=== PATIENT | female | born 1955 | race Caucasian/White ===

== ENCOUNTER → 2017-11-23 06:52 | Outpatient (CLI) | payer OTHER, SELFPAY ==
[2017-11-23 07:31] LABS: Hemoglobin A1C 8.9 % (0.0-7.0)
[2017-11-23 08:02] LABS: Creatinine,Urine Random 342 mg/dL (20-320)
[2017-11-23 08:19] LABS: Alanine Aminotransferase 39 U/L (12-78); Albumin Level 3.7 gm/dL (3.4-5.0); Albumin/Globulin Ratio 1.2 (1.1-1.8); Alkaline Phosphatase 79 U/L (46-116); Anion Gap 11.6 mEq/L (5-15); Aspartate Amino Transferase 26 U/L (15-37); Bilirubin,Total 0.5 mg/dL (0.2-1.0); Blood Urea Nitrogen 13 mg/dL (7-18); Calcium 8.8 mg/dL (8.5-10.1); Carbon Dioxide 30 mmol/L (21.0-32.0); Chloride 106 mmol/L (98-107); Chol/HDL Ratio 2.9 (1-3.5); Cholesterol 178 mg/dL (140-200); Creatinine,Serum 0.92 mg/dL (0.55-1.02); Estimated Glomerular Filt Rate 62 ml/min (>60); GFR (African American) 75 ML/MIN (>60); Globulin 3.2 gm/dl (1.3-3.2); Glucose 72 mg/dL (74-106); HDL Cholesterol 61 mg/dL (29-89); LDL Cholesterol 88 mg/dL (0-130); Potassium 4.6 mmoL/L (3.5-5.1); Sodium 143 mmol/L (136-145); Total Protein,Serum 6.9 gm/dL (6.4-8.2); Triglycerides 147 mg/dL (30-200); VLDL Cholesterol 29 mg/dL (0-40)
[2017-11-23 11:01] LABS: Microscopic, Urine URINE MICROSCOPIC (MICROSCOPIC)
[2017-11-23 11:03] LABS: Appearance,Urine SL CLOUDY (Clear); Bilirubin,Urine Negative (Negative); Blood, Urine Negative (Negative); Color,Urine YELLOW (Yellow); Glucose,Urine (UA) Negative (Negative); Ketones,Urine Negative (Negative); Leukocyte Esterase,Urine 1+ (Negative); Nitrate,Urine Negative (Negative); Protein,Urine Negative (Negative); Specific Gravity, Urine >= 1.030 (1.005-1.030); Urobilinogen,Urine 0.2 EU/dl (0.2)
[2017-11-23 11:14] LABS: Bacteria,Urine 4+ /lpf; Squamous Epithelial Cell,Urine 20-50 #/hpf (0-5)
== END ==
PROVIDERS: PCP Internal Medicine Adolescent Medicine; Visit Provider Nurse Practitioner Family
DX: E10.29 Type 1 diabetes mellitus with other diabetic kidney complication (principal); E78.2 Mixed hyperlipidemia; R39.15 Urgency of urination
CPT/HCPCS: 36415; 80053; 80061; 81001; 82043; 82570; 83036; 87086

== ENCOUNTER → 2018-05-26 07:07 | Outpatient (CLI) | payer OTHER, SELFPAY ==
[2018-05-26 09:06] LABS: Alanine Aminotransferase 34 U/L (12-78); Albumin Level 3.8 gm/dL (3.4-5.0); Albumin/Globulin Ratio 1.1 (1.1-1.8); Alkaline Phosphatase 88 U/L (46-116); Anion Gap 12.7 mEq/L (5-15); Aspartate Amino Transferase 22 U/L (15-37); Bilirubin,Total 0.5 mg/dL (0.2-1.0); Blood Urea Nitrogen 15 mg/dL (7-18); Carbon Dioxide 29 mmol/L (21.0-32.0); Chloride 102 mmol/L (98-107); Chol/HDL Ratio 3.3 (1-3.5); Cholesterol 216 mg/dL (140-200); Estimated Glomerular Filt Rate 63 ml/min (>60); GFR (African American) 77 ML/MIN (>60); Globulin 3.6 gm/dl (1.3-3.2); Glucose 150 mg/dL (74-106); HDL Cholesterol 66 mg/dL (29-89); LDL Cholesterol 120 mg/dL (0-130); Potassium 4.7 mmoL/L (3.5-5.1); Sodium 139 mmol/L (136-145); Thyroid Stimulating Hormone 2.21 uIU/ml (0.358-3.740); Total Protein,Serum 7.4 gm/dL (6.4-8.2); Triglycerides 152 mg/dL (30-200); VLDL Cholesterol 30 mg/dL (0-40)
[2018-05-26 09:25] LABS: Basophils # 0.1 K/mm3 (0-0.2); Basophils % 0.7 % (0.1-2.0); Eosinophils # 0.2 K/mm3 (0.0-0.4); Hematocrit 42.4 % (37.0-47.0); Lymphocytes % 29.2 % (10-50); Mean Corpuscular HGB Conc 33.1 g/dL (31.8-35.4); Mean Corpuscular Hemoglobin 29.2 pg (27.0-31.2); Mean Corpuscular Volume 88.3 fl (81-99); Mean Platelet Volume 8.1 fl (7.4-10.4); Monocytes # 0.7 K/mm3 (0.1-1.0); Monocytes % 6.8 % (1.7-9.3); Neutrophils # 6.4 K/mm3 (1.8-7.8); Neutrophils % 61.4 % (37.0-80.0); Platelet Count 338 K/mm3 (142-424); Red Blood Count 4.81 M/mm3 (4.20-5.40); Red Cell Distribution Width 13.8 % (11.5-17.5); White Blood Count 10.4 K/mm3 (4.8-10.8)
[2018-05-27 09:20] LABS: Creatinine, Urine 138.4 mg/dL (Not Estab.); Microalbumin, Urine 13.3 ug/mL (Not Estab.)
[2018-05-27 09:26] LABS: Rapid Plasma Reagin Ab Titer Non Reactive (NonRea<1:1)
[2018-05-27 09:27] LABS: Vitamin B12 402 pg/mL (232-1245)
== END ==
PROVIDERS: Visit Provider Nurse Practitioner Family
DX: E10.29 Type 1 diabetes mellitus with other diabetic kidney complication (principal); E78.2 Mixed hyperlipidemia; R41.3 Other amnesia; E53.8 Deficiency of other specified B group vitamins; R80.9 Proteinuria, unspecified
CPT/HCPCS: 36415; 80053; 80061; 82043; 82570; 82607; 83036; 84443; 85025; 86592

== ENCOUNTER → 2018-06-15 08:20 | Outpatient (CLI) | payer OTHER, SELFPAY ==
--- NOTE | 2018-06-15 08:22 | MM_ITS ---
MM Dig screening mamm BI w/CAD CAD Screening COMPARISON: Digital mammograms with CAD 08/09/2015 and 02/03/2013 INDICATION: There is no personal or family history of breast cancer. There is been previous biopsy right breast for benign disease. TECHNIQUE: Standard CC and MLO images were obtained. R2 CAD reviewed. FINDINGS: Prominent somewhat heterogenic fibroglandular densities are seen in both breast primarily upper outer quadrants. The findings are bilateral and symmetrical. There is no suspicious lesion and no suspicious microcalcifications. IMPRESSION: Stable exam with no suspicious lesion seen BI-RADS Category: 1 Negative RECOMMENDED FOLLOW-UP: 1YR - 1 YEAR FOLLOW-UP (A letter has been sent to the patient regarding results of the study.)
== END ==
PROVIDERS: PCP Nurse Practitioner Family; Visit Provider Nurse Practitioner Family
DX: Z12.31 Encounter for screening mammogram for malignant neoplasm of breast (principal)
CPT/HCPCS: 77067

== ENCOUNTER → 2018-12-06 17:24 | Outpatient (CLI) | payer OTHER, SELFPAY | PROVIDERS: Visit Provider Podiatrist | DX: B35.1 Tinea unguium (principal) | CPT/HCPCS: 87102; 87206; 87220 ==

== ENCOUNTER → 2019-05-12 07:17 | Outpatient (CLI) | payer OTHER, SELFPAY ==
[2019-05-12 07:55] LABS: Basophils # 0.1 K/mm3 (0-0.2); Basophils % 0.6 % (0.1-2.0); Eosinophils # 0.1 K/mm3 (0.0-0.4); Eosinophils % 1.5 % (0.1-12.0); Hematocrit 43.2 % (37.0-47.0); Hemoglobin 13.8 g/dL (12.2-16.2); Lymphocytes # 2.3 K/mm3 (0.7-4.5); Lymphocytes % 24.9 % (10-50); Mean Corpuscular HGB Conc 31.9 g/dL (31.8-35.4); Mean Corpuscular Hemoglobin 28.8 pg (27.0-31.2); Mean Platelet Volume 7.9 fl (7.4-10.4); Monocytes # 0.6 K/mm3 (0.1-1.0); Monocytes % 6.4 % (1.7-9.3); Neutrophils # 6.3 K/mm3 (1.8-7.8); Neutrophils % 66.6 % (37.0-80.0); Platelet Count 291 K/mm3 (142-424); Red Cell Distribution Width 13.6 % (11.5-17.5); White Blood Count 9.4 K/mm3 (4.8-10.8)
[2019-05-12 09:29] LABS: Alanine Aminotransferase 29 U/L (9-52); Albumin Level 3.6 g/dL (3.4-5.0); Alkaline Phosphatase 87 U/L (46-116); Anion Gap 15.8 mEq/L (5-15); Aspartate Amino Transferase 19 U/L (15-37); Bilirubin,Total 0.4 mg/dL (0.2-1.0); Blood Urea Nitrogen 19 mg/dL (7-18); Calcium 8.9 mg/dL (8.5-10.1); Carbon Dioxide 27 mmol/L (21.0-32.0); Chloride 105 mmol/L (98-107); Chol/HDL Ratio 3.1 (1-3.5); Cholesterol 203 mg/dL (140-200); Creatinine,Serum 0.86 mg/dL (0.55-1.02); Estimated Glomerular Filt Rate 67 ml/min (>60); GFR (African American) 81 ML/MIN (>60); Globulin 3.7 gm/dl (1.3-3.2); Glucose 155 mg/dL (74-106); HDL Cholesterol 65 mg/dL (29-89); LDL Cholesterol 117 mg/dL (0-130); Potassium 4.8 mmoL/L (3.5-5.1); Sodium 143 mmol/L (137-145); Total Protein,Serum 7.3 g/dL (6.4-8.2); Triglycerides 106 mg/dL (30-200); VLDL Cholesterol 21 mg/dL (0-40)
[2019-05-12 10:07] LABS: Hemoglobin A1C 9.3 % (0.0-7.0)
[2019-05-13 10:48] LABS: Vitamin B12 469 pg/mL (232-1245)
[2019-05-13 11:01] LABS: Creatinine, Urine 142.9 mg/dL (Not Estab.)
== END ==
PROVIDERS: PCP Internal Medicine Adolescent Medicine; Visit Provider Nurse Practitioner Family
DX: E10.29 Type 1 diabetes mellitus with other diabetic kidney complication (principal); E78.2 Mixed hyperlipidemia; E53.8 Deficiency of other specified B group vitamins; R80.9 Proteinuria, unspecified
CPT/HCPCS: 36415; 80053; 80061; 82043; 82570; 82607; 83036; 85025

== ENCOUNTER → 2020-02-22 08:24 | Outpatient (CLI) | payer OTHER, SELFPAY ==
[2020-02-22 09:19] LABS: Basophils # 0.1 K/mm3 (0-0.2); Basophils % 0.8 % (0.1-2.0); Eosinophils # 0.2 K/mm3 (0.0-0.4); Eosinophils % 1.5 % (0.1-12.0); Hematocrit 44.7 % (37.0-47.0); Hemoglobin 14.4 g/dL (12.2-16.2); Lymphocytes # 2.9 K/mm3 (0.7-4.5); Lymphocytes % 27.2 % (10-50); Mean Corpuscular HGB Conc 32.3 g/dL (31.8-35.4); Mean Corpuscular Hemoglobin 29.3 pg (27.0-31.2); Mean Corpuscular Volume 90.8 fl (81-99); Mean Platelet Volume 9.4 fl (7.4-10.4); Monocytes # 0.7 K/mm3 (0.1-1.0); Monocytes % 6.6 % (1.7-9.3); Neutrophils # 6.7 K/mm3 (1.8-7.8); Neutrophils % 63.9 % (37.0-80.0); Platelet Count 334 K/mm3 (142-424); Red Blood Count 4.92 M/mm3 (4.20-5.40); Red Cell Distribution Width 15.4 % (11.5-17.5); White Blood Count 10.5 K/mm3 (4.8-10.8)
[2020-02-22 11:07] LABS: Chloride 101 mmol/L (98-107); Sodium 139 mmol/L (136-145)
[2020-02-22 11:09] LABS: Alanine Aminotransferase 27 U/L (12-78); Aspartate Amino Transferase 36 U/L (14-36); Blood Urea Nitrogen 20 mg/dl (7-17); Carbon Dioxide 30 mmol/L (22.0-30.0); Estimated Glomerular Filt Rate 63 ml/min (>60); GFR (African American) 77 ML/MIN (>60)
[2020-02-22 11:10] LABS: Albumin Level 4.4 g/dl (3.5-5.0); Albumin/Globulin Ratio 1.5 (1.1-1.8); Alkaline Phosphatase 78 U/L (38-126); Bilirubin,Total 0.6 mg/dl (0.2-1.3); Calcium 9.6 mg/dl (8.4-10.2); Chol/HDL Ratio 2.6 (1-3.5); Cholesterol 184 mg/dl (140-200); Glucose 176 mg/dl (74-100); HDL Cholesterol 70 mg/dl (40-60); Total Protein,Serum 7.4 g/dl (6.3-8.2); Triglycerides 135 mg/dl (30-150); VLDL Cholesterol 27 mg/dL (0-40)
[2020-02-22 11:22] LABS: Direct LDL Cholesterol 77.67 mg/dL (100-129)
[2020-02-22 11:44] LABS: Hemoglobin A1C 6.9 % (4.0-6.0)
[2020-02-22 14:55] LABS: Creatinine,Urine Random 169 mg/dL (Not Estab.)
[2020-02-22 15:00] LABS: Microalbumin/Creatinine Ratio 5.3
[2020-02-22 23:25] LABS: Vitamin B12 > 1000 pg/mL (239-931)
== END ==
PROVIDERS: Visit Provider Nurse Practitioner Family
DX: E10.29 Type 1 diabetes mellitus with other diabetic kidney complication (principal); E78.2 Mixed hyperlipidemia; E53.8 Deficiency of other specified B group vitamins
CPT/HCPCS: 36415; 80053; 80061; 82043; 82570; 82607; 83036; 85025

== ENCOUNTER → 2020-06-18 08:55 | Outpatient (CLI) | payer OTHER, SELFPAY ==
[2020-06-18 10:38] LABS: Coronavirus 19 IgG Antibody Positive (Negative); Coronavirus 19 IgM Antibody Negative (Negative)
== END ==
PROVIDERS: Visit Provider Ophthalmology
DX: Z01.818 Encounter for other preprocedural examination (principal); Z20.822 Contact with and (suspected) exposure to COVID-19; H25.11 Age-related nuclear cataract, right eye
CPT/HCPCS: 36415; 86328

== ENCOUNTER 2020-06-19 08:07 | Day surgery (SDC) | payer OTHER, SELFPAY ==
[2020-06-12 11:05] VITALS: BMI 26.0
[2020-06-19 08:37] VITALS: BP 141/77; PULSE 92; RESP 16; TEMP 36.2; O2SAT 98
[2020-06-19 10:14] LABS: POC Glucose,Bedside 112 (70-110)
[2020-06-19 10:21] VITALS: BP 171/78; PULSE 90; RESP 18; TEMP 36.4; O2SAT 98
[2020-06-19 10:26] VITALS: BP 143/69; PULSE 86; RESP 18; O2SAT 98
[2020-06-19 10:31] VITALS: BP 154/72; PULSE 86; RESP 20; O2SAT 98
[2020-06-19 10:36] VITALS: BP 147/78; PULSE 82; RESP 18; O2SAT 100
[2020-06-19 10:40] VITALS: BP 145/68; PULSE 63; RESP 16; TEMP 36.3; O2SAT 100
== END 2020-06-19 10:56 | disposition home or self-care (01) ==
LOC: OR 08:08
PROVIDERS: PCP Internal Medicine Adolescent Medicine; Visit Provider Ophthalmology
PROC: (CPT 66984; principal; 2020-06-19 10:00)
DX: H25.813 Combined forms of age-related cataract, bilateral (principal); E11.9 Type 2 diabetes mellitus without complications; Z87.19 Personal history of other diseases of the digestive system; Z79.899 Other long term (current) drug therapy; Z79.4 Long term (current) use of insulin
CPT/HCPCS: 66984; 82962; V2632

== ENCOUNTER → 2020-08-04 07:46 | Outpatient (CLI) | payer OTHER, SELFPAY | PROVIDERS: Visit Provider Ophthalmology | DX: Z01.812 Encounter for preprocedural laboratory examination (principal); Z11.52 Encounter for screening for COVID-19; H25.12 Age-related nuclear cataract, left eye | CPT/HCPCS: U0003 ==

== ENCOUNTER 2020-08-07 06:27 | Day surgery (SDC) | payer OTHER, SELFPAY ==
[2020-08-01 09:30] VITALS: BMI 26.0
[2020-08-07 06:40] VITALS: BP 145/92; PULSE 86; RESP 18; TEMP 36.2; O2SAT 98
[2020-08-07 06:48] LABS: POC Glucose,Bedside 95 (70-110)
[2020-08-07 07:43] VITALS: BP 152/72; PULSE 87; RESP 16; O2SAT 100
[2020-08-07 07:48] VITALS: BP 146/67; PULSE 78; RESP 16; O2SAT 100
[2020-08-07 07:53] VITALS: BP 136/66; PULSE 78; RESP 16; O2SAT 100
[2020-08-07 07:57] VITALS: BP 128/65; PULSE 77; RESP 16; O2SAT 100
[2020-08-07 08:00] VITALS: BP 122/70; PULSE 77; RESP 18; TEMP 36.2; O2SAT 100
== END 2020-08-07 08:10 | disposition home or self-care (01) ==
LOC: OR 06:27
PROVIDERS: PCP Internal Medicine Adolescent Medicine; Visit Provider Ophthalmology
PROC: (CPT 66984; principal; 2020-08-07 07:30)
DX: H25.813 Combined forms of age-related cataract, bilateral (principal); E11.9 Type 2 diabetes mellitus without complications; Z90.49 Acquired absence of other specified parts of digestive tract; E78.5 Hyperlipidemia, unspecified; I10 Essential (primary) hypertension; Z79.899 Other long term (current) drug therapy; Z79.4 Long term (current) use of insulin
CPT/HCPCS: 66984; 82962; V2632

== ENCOUNTER → 2020-12-18 07:21 | Outpatient (CLI) | payer OTHER, SELFPAY ==
[2020-12-18 08:27] LABS: Alanine Aminotransferase 25 U/L (12-78); Albumin Level 4.1 g/dl (3.5-5.0); Albumin/Globulin Ratio 1.3 (1.1-1.8); Alkaline Phosphatase 68 U/L (38-126); Anion Gap 12.2 mEq/L (5-15); Aspartate Amino Transferase 31 U/L (14-36); Bilirubin,Total 0.4 mg/dl (0.2-1.3); Blood Urea Nitrogen 20 mg/dl (7-17); Calcium 9.2 mg/dl (8.4-10.2); Carbon Dioxide 29 mmol/L (22.0-30.0); Chloride 103 mmol/L (98-107); Chol/HDL Ratio 2.6 (1-3.5); Cholesterol 185 mg/dl (140-200); Estimated Glomerular Filt Rate 72 ml/min (>60); GFR (African American) 87 ML/MIN (>60); Globulin 3.1 g/dL (1.3-3.2); Glucose 205 mg/dl (74-100); HDL Cholesterol 72 mg/dl (40-60); Potassium 5.2 mmoL/L (3.5-5.1); Sodium 139 mmol/L (136-145); Total Protein,Serum 7.2 g/dl (6.3-8.2); Triglycerides 145 mg/dl (30-150); VLDL Cholesterol 29 mg/dL (0-40)
[2020-12-18 08:28] LABS: Microalbumin/Creatinine Ratio 10.6
[2020-12-18 08:30] LABS: Creatinine,Urine Random 156 mg/dL (Not Estab.)
[2020-12-18 08:38] LABS: Direct LDL Cholesterol 81.94 mg/dL (100-129)
[2020-12-18 08:57] LABS: Thyroid Stimulating Hormone 0.35 uIU/mL (0.465-4.68)
== END ==
PROVIDERS: Visit Provider Nurse Practitioner
DX: E10.65 Type 1 diabetes mellitus with hyperglycemia (principal); Z79.4 Long term (current) use of insulin
CPT/HCPCS: 36415; 80053; 80061; 82043; 82570; 84443

== ENCOUNTER 2021-07-31 17:57 | Emergency (ER) | payer OTHER, SELFPAY ==
[2021-07-31 18:00] VITALS: BP 153/75; PULSE 102; RESP 18; TEMP 37.9; O2SAT 97; BMI 25.4
--- NOTE | 2021-07-31 18:53 | HMH.EDUTC ---
[facility] [place] Clinical Impression: COVID-19 Disposition: Home, Self-Care Condition on Discharge: Good Instructions: DI for Fever (Symptom) -- Adult, DI for COVID-19 (Suspected or Confirmed ), Preventing the Spread of Coronavirus Discharge Instructions Additional Instructions: *Monitor Temp, Over the counter Motrin or Tylenol as directed/as needed Tylenol every 4 hours and Motrin every 6 hours (as long as your family doctor has told you that you can take it) for fever or pain. and straight to ER if unable to lower temp less than 101.0 after medication given *Warm salt water gargles may help to soothe the throat *Throat Lozenges *Warm fluids like tea with honey may help to soothe the throat *Sleep elevated *Humidifier/Vaporizer *Make sure to wear a well fitted mask Follow up IMMEDIATELY for new or worsening symptoms or no Noticeable improvement over the next 48-72 hours. 911 for difficulty breathing or swallowing Calculating Isolation Day 0 is your first day of symptoms or a positive viral test. Day 1 is the first full day after your symptoms developed or your test specimen was collected. If you have COVID-19 or have symptoms, isolate for at least 5 days. IF YOU Tested positive for COVID-19 or have symptoms, regardless of vaccination status Stay home for at least 5 days Stay home for 5 days and isolate from others in your home. Wear a well-fitting mask if you must be around others in your home. Do not travel. Ending isolation if you had symptoms End isolation after 5 full days if you are fever-free for 24 hours (without the use of fever-reducing medication) and your symptoms are improving. Ending isolation if you did NOT have symptoms End isolation after at least 5 full days after your positive test. If you got very sick from COVID-19 or have a weakened immune system You should isolate for at least 10 days. Consult your doctor before ending isolation. Prescriptions: Nirmatrelvir/Ritonavir [Paxlovid Co-Pack (Eua)] 1 each PO DIRECTED #30 tab Transmission Status: Pending to [id number] Referrals: Gerardo Siegel MD [Primary Care Provider] - As needed Forms: Work/School Release Time of Disposition: 19:34 Medical Decision Making - Miguel Inquiry Pt receiving controlled substance: No Miguel was queried for this patient: No Vital Signs: 07/31/21 18:00 07/31/21 19:34 Temperature 100.2 F H 100.2 F H Temperature Source Oral Pulse Rate 102 H Pulse Rate [Right Brachial] 102 H Respiratory Rate 18 18 Blood Pressure 153/75 H Blood Pressure [Right Arm] 153/75 H Blood Pressure Mean [Right Arm] 101 Blood Pressure Source [Right Arm] Automatic Cuff Blood Pressure Position [Right Arm] Sitting 02 Sat by Pulse Oximetry 97 Oxygen Delivery Method Room Air - Lab Data Lab results reviewed: Yes: I reviewed the patient's lab results. Lab Results 07/31/21 18:07: SARS-CoV-2 (PCR) Detected A, Influenza A Untype (PCR) Not detected, Influenza Type B (PCR) Not detected Medical Decision Narrative: Patient requesting Paxlovid spoke with [facility] pharmacy in [place] and they advised can prescribed for + COVID and they do have it in stock, awaiting rapid COVID test Patient COVID test not back patient give her number and wanted to go home and wait on results and if positive to call in Paxlovid to [facility] in [place] Discussed with [facility] about prescribing paxlovid [facility] in [place] has medication and recommended contacting them for prescribing guidelines and directions, Contacted [facility] and spoke with Pharmacist and he advised for +COVID 19 patient with elevated risk and to write Paxlovid 30tables as directed on package and they would provide complete instructions on how to take medication Patient COVID test back + result medication sent to [facility] and patient contacted and advised that medication had been sent into [place] [facility] [place] - General Stated complaint: covid test sore throat cough raymundo Time
[2021-07-31 19:08] LABS: Influenza A, PCR Not Detected (NotDetected); Influenza B, PCR Not Detected (NotDetected)
[2021-07-31 19:34] VITALS: BP 153/75; PULSE 102; RESP 18; TEMP 37.9; O2SAT 97
[2021-07-31 20:04] LABS: Coronavirus 19, PCR Detected (NotDetected)
== END 2021-07-31 19:40 | disposition home or self-care (01) ==
PROVIDERS: Emergency Provider Nurse Practitioner; PCP Internal Medicine Adolescent Medicine
DX: U07.1 COVID-19 (principal)
CPT/HCPCS: 99212; C9803; G0463; U0003; U0005

== ENCOUNTER 2021-11-16 09:16 | Inpatient (IN) | payer OTHER, MEDICARE, SELFPAY ==
[2021-11-16] VITALS (15 sets, daily range): BP systolic 102–173; BP diastolic 48–75; PULSE 97–108; RESP 16–18; TEMP 37.1–37.3; O2SAT 93–97; BMI 25.7; BMI 26.5
--- NOTE | 2021-11-16 09:34 | PC.NURSE ---
covid test sent to the lab
--- NOTE | 2021-11-16 09:34 | PC.NURSE ---
Pt has glucose reading is 280
[2021-11-16 09:37] LABS: Coronavirus 19, PCR Not Detected (NotDetected); Influenza A, PCR Not Detected (NotDetected); Influenza B, PCR Not Detected (NotDetected)
--- NOTE | 2021-11-16 09:49 | HMH.EDGENADL ---
ED Disposition Clinical Impression: Pneumonia Qualifiers: Pneumonia type: due to unspecified organism Laterality: bilateral Lung location: unspecified part of lung Qualified Code(s): J18.9 - Pneumonia, unspecified organism Sepsis Qualifiers: Sepsis type: sepsis due to unspecified organism Sepsis acute organ dysfunction status: with acute organ dysfunction Severe sepsis acute organ dysfunction type: acute respiratory failure Acute respiratory failure type: with hypoxia Severe sepsis shock status: without septic shock Qualified Code(s): A41.9 - Sepsis, unspecified organism; R65.20 - Severe sepsis without septic shock; J96.01 - Acute respiratory failure with hypoxia Respiratory failure with hypoxia Qualifiers: Chronicity: acute Qualified Code(s): J96.01 - Acute respiratory failure with hypoxia Disposition: Admitted As Inpatient Condition on Discharge: Serious Referrals: Brittany Hensley APRN [Primary Care Provider] - - Critical Care Critical Care Time: No Attestation: On 11/16/21, the high probability of a clinically significant, sudden or life threatening deterioration of the following system(s) required my full and direct attention, intervention and personal management. The time I documented below is in addition to time spent performing reported procedures but includes the following listed in this critical care notation. Medical Decision Making - Miguel Inquiry Pt receiving controlled substance: No Vital Signs: 11/16/21 09:19 11/16/21 09:44 11/16/21 10:00 Temperature 99.1 F Temperature Source Oral Pulse Rate 104 H Pulse Rate [Left Radial] 107 H Respiratory Rate 18 Blood Pressure 160/75 H 171/70 H Blood Pressure [Right Arm] 173/74 H Blood Pressure Mean 103 Blood Pressure Mean [Right Arm] 107 Blood Pressure Source Blood Pressure Source [Right Arm] Automatic Cuff Blood Pressure Position Blood Pressure Position [Right Arm] Sitting 02 Sat by Pulse Oximetry 97 95 Oxygen Delivery Method Room Air Room Air 11/16/21 10:30 11/16/21 11:00 11/16/21 11:39 Temperature Temperature Source Pulse Rate 106 H 104 H 101 H Pulse Rate [Left Radial] Respiratory Rate 18 Blood Pressure 146/63 H 144/64 H 138/72 Blood Pressure [Right Arm] Blood Pressure Mean 90 81 Blood Pressure Mean [Right Arm] Blood Pressure Source Automatic Cuff Blood Pressure Source [Right Arm] Blood Pressure Position Sitting Blood Pressure Position [Right Arm] 02 Sat by Pulse Oximetry 96 93 L 97 Oxygen Delivery Method Room Air Room Air 11/16/21 11:59 11/16/21 12:30 11/16/21 13:30 Temperature Temperature Source Pulse Rate 108 H 102 H 98 H Pulse Rate [Left Radial] Respiratory Rate 16 Blood Pressure 116/54 L 102/58 L 105/48 L Blood Pressure [Right Arm] Blood Pressure Mean 73 64 67 Blood Pressure Mean [Right Arm] Blood Pressure Source Blood Pressure Source [Right Arm] Blood Pressure Position Blood Pressure Position [Right Arm] 02 Sat by Pulse Oximetry 97 94 L 95 Oxygen Delivery Method Room Air Room Air Nasal Cannula - Lab Data Lab Results 11/16/21 09:25: SARS-CoV-2 (PCR) Not detected, Influenza A Untype (PCR) Not detected, Influenza Type B (PCR) Not detected 11/16/21 09:55: WBC 25.2 H*, RBC 4.43, Hgb 13.1, Hct 40.7, MCV 91.8, MCH 29.5, MCHC 32.2, RDW 13.8, Plt Count 320, MPV 8.4, Neut % (Auto) 88.4 H, Lymph % (Auto) 6.7 L, [place] % (Auto) 4.5, Eos % (Auto) 0.2, Baso % (Auto) 0.2, Neut # (Auto) 22.3 H, Lymph # (Auto) 1.7, [place] # (Auto) 1.1 H, Eos # (Auto) 0.1, Baso # (Auto) 0.1, Total Counted 100, Neutrophils % (Manual) 77 H, Band Neutrophils % 8.0, Lymphocytes % (Manual) 10, Monocytes % (Manual) 5, Platelet Estimate Normal, RBC Morphology Normal 11/16/21 09:55: Sodium 136, Potassium 4.5, Chloride 102, Carbon Dioxide 23, Anion Gap 15.5 H, BUN 16, Creatinine 0.80, Estimated Creat Clear 55, Estimated GFR 72, Est GFR ( Amer) 87, Glucose 255 H, Calcium 8.2 L, Total
--- NOTE | 2021-11-16 10:03 | PC.NURSE ---
pt blanket changed after vomiting, 2 two warm blankets applied, pillow given. will continue to monitor
[2021-11-16 10:07] LABS: Basophils # 0.1 K/mm3 (0-0.2); Basophils % 0.2 % (0.1-2.0); Eosinophils # 0.1 K/mm3 (0.0-0.4); Eosinophils % 0.2 % (0.1-12.0); Hematocrit 40.7 % (37.0-47.0); Hemoglobin 13.1 g/dL (12.2-16.2); Lymphocytes # 1.7 K/mm3 (0.7-4.5); Lymphocytes % 6.7 % (10-50); Mean Corpuscular HGB Conc 32.2 g/dL (31.8-35.4); Mean Corpuscular Hemoglobin 29.5 pg (27.0-31.2); Mean Corpuscular Volume 91.8 fl (81-99); Mean Platelet Volume 8.4 fl (7.4-10.4); Monocytes # 1.1 K/mm3 (0.1-1.0); Monocytes % 4.5 % (1.7-9.3); Neutrophils # 22.3 K/mm3 (1.8-7.8); Neutrophils % 88.4 % (37.0-80.0); Platelet Count 320 K/mm3 (142-424); Red Blood Count 4.43 M/mm3 (4.20-5.40); Red Cell Distribution Width 13.8 % (11.5-17.5); White Blood Count 25.2 K/mm3 (4.8-10.8)
[2021-11-16 10:09] LABS: MANUAL DIFFERENTIAL MANUAL DIFFERENTIAL (MANUAL DIFF)
[2021-11-16 10:11] LABS: Chloride 102 mmol/L (98-107)
[2021-11-16 10:12] LABS: Potassium 4.5 mmoL/L (3.5-5.1); Sodium 136 mmol/L (136-145)
[2021-11-16 10:14] LABS: Alanine Aminotransferase 34 U/L (12-78); Aspartate Amino Transferase 43 U/L (14-36); Blood Urea Nitrogen 16 mg/dl (7-17); Creatinine Clearance Estimated 55 mL/min (50-200); Estimated Glomerular Filt Rate 72 ml/min (>60); GFR (African American) 87 ML/MIN (>60)
[2021-11-16 10:15] LABS: Albumin Level 4.3 g/dl (3.5-5.0); Albumin/Globulin Ratio 1.2 (1.1-1.8); Alkaline Phosphatase 128 U/L (38-126); Anion Gap 15.5 mEq/L (5-15); Bilirubin,Total 0.8 mg/dl (0.2-1.3); Calcium 8.2 mg/dl (8.4-10.2); Carbon Dioxide 23 mmol/L (22.0-30.0); Globulin 3.5 g/dL (1.3-3.2); Glucose 255 mg/dl (74-100); Total Protein,Serum 7.8 g/dl (6.3-8.2)
[2021-11-16 10:17] LABS: Lactic Acid 2.5 mmol/L (0.7-2.1)
[2021-11-16 10:31] LABS: Lymphocytes % 10 % (10-50); Monocytes % 5 % (2-9); Neutrophils % 77 % (42-76); Total Cells Counted 100
[2021-11-16 10:32] LABS: Platelet Estimate Normal; RBC Morphology Normal
--- NOTE | 2021-11-16 10:34 | PC.NURSE ---
pt up to the bathroom to provide urine sample
--- NOTE | 2021-11-16 10:45 | PC.NURSE ---
urine sample sent to lab
[2021-11-16 11:09] LABS: Appearance,Urine CLEAR (Clear); Bilirubin,Urine Negative (Negative); Blood, Urine 1+ (Negative); Color,Urine YELLOW (Yellow); Glucose,Urine (UA) 2+ (Negative); Ketones,Urine 3+ (Negative); Leukocyte Esterase,Urine Negative (Negative); Microscopic, Urine URINE MICROSCOPIC (MICROSCOPIC); Nitrate,Urine Negative (Negative); Protein,Urine 1+ (Negative); Specific Gravity, Urine >= 1.030 (1.005-1.030)
[2021-11-16 11:20] LABS: Bacteria,Urine Trace /lpf; RBC,Urine Occasional #/hpf (0-3); Squamous Epithelial Cell,Urine Occasional #/hpf (0-5); WBC,Urine Occasional #/hpf (0-3)
--- NOTE | 2021-11-16 11:21 | XR_ITS ---
PROCEDURE INFORMATION: Exam: XR Chest Exam date and time: 11/16/2021 11:23 AM Age: 66 years old Clinical indication: Cough; Additional info: Elev wbc, chills TECHNIQUE: Imaging protocol: Radiologic exam of the chest. Views: 2 views. COMPARISON: No relevant prior studies available. FINDINGS: Lungs: There is a 1.9 cm nodular density in the right mid lung field. There is a 1.5 cm left mid lung field nodule is well. Pleural spaces: No pleural effusion. No pneumothorax. Heart/Mediastinum: No cardiomegaly. Bones/joints: Unremarkable. IMPRESSION: Right and left mid lung field nodules. This would be unusual appearance for pneumonitis and a short interval follow-up is recommended if inflammatory disease is suspected. If these do not completely resolve on follow-up imaging, a CT of the chest is recommended.
--- NOTE | 2021-11-16 11:22 | PC.NURSE ---
radiology notified of chest x-ray
--- NOTE | 2021-11-16 12:03 | CT_ITS ---
PROCEDURE INFORMATION: Exam: CTA Chest With Contrast Exam date and time: 11/16/2021 12:31 PM Age: 66 years old Clinical indication: Abnormal findings; Abnormal radiologic exam of lung or chest; Additional info: Possible lung masses TECHNIQUE: Imaging protocol: Computed tomographic angiography of the chest with contrast. 3D rendering (Not supervised by radiologist): MIP and/or 3D reconstructed images were created by the technologist. Radiation optimization: All CT scans at this facility use at least one of these dose optimization techniques: automated exposure control; mA and/or kV adjustment per patient size (includes targeted exams where dose is matched to clinical indication); or iterative reconstruction. Contrast material: ISOVUE 370; Contrast volume: 75 ml; Contrast route: INTRAVENOUS (IV); COMPARISON: CR XR CHEST 2V 11/16/2021 11:23 AM FINDINGS: Pulmonary arteries: No pulmonary emboli. Aorta: No aortic aneurysm. No aortic dissection. Lungs: There is focal consolidation in medial aspect of the left lower lobe. There is also consolidation in the medial right lower lobe. There are patchy bilateral alveolar infiltrates. There is no mass, but follow-up to document clearing is recommended. Pleural spaces: No pneumothorax. No pleural effusion. Heart: No cardiomegaly. No pericardial effusion. Lymph nodes: There are nonenlarged mediastinal lymph nodes. This includes partially calcified right hilar lymph nodes. Bones/joints: There are degenerative changes of the thoracic spine. Soft tissues: Unremarkable. IMPRESSION: 1. There are bilateral areas of consolidation and there are small patchy peripheral infiltrates. These findings are consistent with multifocal pneumonia. Superimposed septic emboli cannot be excluded. 2. There is no pulmonary embolism.
--- NOTE | 2021-11-16 12:04 | CT_ITS ---
PROCEDURE INFORMATION: Exam: CT Abdomen And Pelvis With Contrast Exam date and time: 11/16/2021 12:31 PM Age: 66 years old Clinical indication: Abnormal findings; Abnormal radiologic finding of the abdomen; Radiologic exam and body structure: Cxr, chest; Additional info: Elev wbc, possible lung masses TECHNIQUE: Imaging protocol: Computed tomography of the abdomen and pelvis with contrast. Radiation optimization: All CT scans at this facility use at least one of these dose optimization techniques: automated exposure control; mA and/or kV adjustment per patient size (includes targeted exams where dose is matched to clinical indication); or iterative reconstruction. Contrast material: ISOVUE; Contrast volume: 75 ml; Contrast route: IV; COMPARISON: RUQ US RUQ-(ABD LTD)1ORGAN/QUAD/FU 03/01/2015 10:08 AM FINDINGS: Diaphragm: There is a small hiatal hernia. Liver: There is fatty infiltration of the liver. Gallbladder and bile ducts: The gallbladder is surgically absent. Pancreas: Normal. No ductal dilation. Spleen: There are multiple splenic granulomas. Adrenal glands: Normal. No mass. Kidneys and ureters: There are left parapelvic cysts. There is some prominence of the left renal collecting system as well. Stomach and bowel: No obstruction. Appendix: No evidence of appendicitis. Intraperitoneal space: No free air. No significant fluid collection. Vasculature: No abdominal aortic aneurysm. Lymph nodes: No enlarged lymph nodes. Urinary bladder: Unremarkable as visualized. Reproductive: Unremarkable as visualized. Bones/joints: There are degenerative changes of the spine. Soft tissues: Unremarkable. IMPRESSION: There is no acute intra-abdominal inflammatory change.
[2021-11-16 12:41] LABS: C-Reactive Protein 304.2 mg/L (0-4)
--- NOTE | 2021-11-16 12:41 | PC.NURSE ---
Daughter at BS at this time
--- NOTE | 2021-11-16 12:41 | PC.NURSE ---
hooked patient back up to monitor and checked to see if patient needed anything, she voices no needs at this time.
--- NOTE | 2021-11-16 12:46 | PC.NURSE ---
pt to CT with radio producer via stretcher
--- NOTE | 2021-11-16 13:18 | PC.NURSE ---
Pts daughter reports that patient had to take out her dexcom for the CTA scan and asked that we keep an eye on her blood sugar. I just did a BS glucose and it was 235 mg/dL. CHAR Godoy aware. Patient voices no needs at this time. call light within reach
[2021-11-16 13:24] LABS: POC Glucose,Bedside 235 (70-110)
--- NOTE | 2021-11-16 13:46 | PC.NURSE ---
PT O2 SAT 88% ON ROOM AIR, O2 APPLIED AT 2L/NC, PT DENIES SOA. ED NOTIFIED
--- NOTE | 2021-11-16 13:50 | PC.NURSE ---
EARLENE RAYMUNDO speaking with Dr. Siegel at this time for patient admission
[2021-11-16 14:02] LABS: Reflex Lactic Add Lactic Reflex
--- NOTE | 2021-11-16 14:06 | PC.NURSE ---
Spoke with JESUS Mendez regarding patient admission.
[2021-11-16 14:09] LABS: Erythrocyte Sedimentation Rate 56 mm/hr (0-30)
--- NOTE | 2021-11-16 14:09 | PC.NURSE ---
MRSA and full upper respiratory swabs sent to lab; Paty, SRNA obtained
--- NOTE | 2021-11-16 14:13 | HMH.PHACONS ---
- Pharmacy Consult Date: 11/16/21 Time: 14:13 Referring provider: DR. PRESLEY Reason for Consult:: VANCOMYCIN DOSING Allergies and ADEs:: Allergies Allergy/AdvReac Type Severity Reaction Status Date / Time No Known Allergies Allergy Verified 08/28/21 08:14 Home Medications:: Home Medications Medication Instructions Recorded Confirmed Type Rosuvastatin Calcium [Crestor] 20 mg PO DAILY 11/08/17 08/28/21 History lisinopriL [Lisinopril 2.5mg Tab] 2.5 mg PO DAILY 11/08/17 08/28/21 History cyanocobalamin (vitamin B-12) 1,000 mcg IM MONTHLY #1 ml 07/26/18 08/28/21 History 1,000 mcg/mL injection solution ciclopirox 8 % topical solution 1 applic TOPICAL DAILY 90 Days 09/13/19 08/28/21 Rx #6.6 ml Insulin Aspart (Niacinamide) 1 unit SQ TID 06/12/20 08/28/21 History [Fiasp 100 Unit/ml Flextouch] insulin glargine 100 unit/mL (3 26 unit SQ HS ml 03/04/21 08/28/21 History mL) subcutaneous pen Nirmatrelvir/Ritonavir [Paxlovid 1 each PO DIRECTED #30 tab 07/31/21 08/28/21 Rx Co-Pack (Eua)] Height: 1.55 m Weight: 61.689 kg Laboratory Results:: Laboratory Results - last 24 hr 11/16/21 09:25: SARS-CoV-2 (PCR) Not detected, Influenza A Untype (PCR) Not detected, Influenza Type B (PCR) Not detected 11/16/21 09:55: WBC 25.2 H*, RBC 4.43, Hgb 13.1, Hct 40.7, MCV 91.8, MCH 29.5, MCHC 32.2, RDW 13.8, Plt Count 320, MPV 8.4, Neut % (Auto) 88.4 H, Lymph % (Auto) 6.7 L, [place] % (Auto) 4.5, Eos % (Auto) 0.2, Baso % (Auto) 0.2, Neut # (Auto) 22.3 H, Lymph # (Auto) 1.7, [place] # (Auto) 1.1 H, Eos # (Auto) 0.1, Baso # (Auto) 0.1, Total Counted 100, Neutrophils % (Manual) 77 H, Band Neutrophils % 8.0, Lymphocytes % (Manual) 10, Monocytes % (Manual) 5, Platelet Estimate Normal, RBC Morphology Normal 11/16/21 09:55: Sodium 136, Potassium 4.5, Chloride 102, Carbon Dioxide 23, Anion Gap 15.5 H, BUN 16, Creatinine 0.80, Estimated Creat Clear 55, Estimated GFR 72, Est GFR ( Amer) 87, Glucose 255 H, Calcium 8.2 L, Total Bilirubin 0.8, AST 43 H, ALT 34, Alkaline Phosphatase 128 H, Total Protein 7.8, Albumin 4.3, Globulin 3.5 H, Albumin/Globulin Ratio 1.2 11/16/21 09:55: Lactate 2.5 H 11/16/21 09:55: ESR 56 H 11/16/21 09:55: C-Reactive Protein 304.2 H, Procalcitonin 1.30 11/16/21 10:40: Urine Color Yellow, Urine Appearance Clear, Urine pH 6.0, Ur Specific [place] >= 1.030, Urine Protein 1+, Urine Glucose (UA) 2+, Urine Ketones 3+, Urine Blood 1+, Urine Nitrate Negative, Urine Bilirubin Negative, Urine Urobilinogen 1.0, Ur Leukocyte Esterase Negative, Urine RBC Occasional, Urine WBC Occasional, Ur Squamous Epith Cells Occasional, Urine Bacteria Trace 11/16/21 13:17: POC Glucose 235 H Medical History: Reports:: Diabetes Mellitus Type 1, Diabetes Mellitus Type 2, Hyperlipidemia, Hypertension Denies:: Cancer, Internal Pacemaker, MRSA, Seizures Assessment and Plan - Assessment and plan all Dx Assessment and Plan for all problems:: Age: 66 yo Serum creatinine: 1 mg/dL Height: 61.0 Inches Weight (kg): 62 Assessment: IBW (kg): 47.80 Dosing wt(kg): 62 Estimated Creatinine clearance (ml/min): 42.3 CRCL method: Cockcroft and Gault using ibw(default). Drug selected: Vancomycin Loading dose (mg): 0 Vd (liters): 49.6 (factor used: 0.8 L/kg) Cale (hr-1): 0.040 Half life (hrs): 17.33 Recommended dose: 1000 mg Interval: 24 hrs Infusion time (hrs): 2.0 Predicted peak (mcg/mL): 31.4 Predicted trough (mcg/mL): 13.02 Total body weight is being used for vancomycin dosing. Recommendations: Give Vancomycin 1000 mg q 24 hrs with an expected Cpeak of 31.4 mcg/ml and an expected Ctrough of 13.02 mcg/ml. ----Vanco only - ignore for aminoglycosides----- CLvanco= 1.98 L/hr AUC 0-24 /SELAM Data: SELAM 0.5 mcg/mL: AUC/SELAM: 1010.1 SELAM 1.0 mcg/mL: AUC/SELAM: 505.1 --------- SELAM 1.5 mc
[2021-11-16 14:16] LABS: Adenovirus,PCR Not Detected (NotDetected); Bordetella Pertussis Not Detected (NotDetected); Chlamydophila Pneumoniae, PCR Not Detected (NotDetected); Coronavirus 19, PCR Not Detected (NotDetected); Coronavirus 229E Not Detected (NotDetected); Coronavirus NL63 Not Detected (NotDetected); Coronavirus OC43 Not Detected (NotDetected); Coronovirus HKU1,PCR Not Detected (NotDetected); Human Metapneumovirus Not Detected (NotDetected); Influenza A, PCR Not Detected (NotDetected); Influenza AH1, 2009 Not Detected (NotDetected); Influenza AH1, PCR Not Detected (NotDetected); Influenza AH3,PCR Not Detected (NotDetected); Influenza B, PCR Not Detected (NotDetected); Mycoplasma Pneumoniae, PCR Not Detected (NotDetected); Parainfluenza 1, PCR Not Detected (NotDetected); Parainfluenza 2, PCR Not Detected (NotDetected); Parainfluenza 3, PCR Not Detected (NotDetected); Parainfluenza 4, PCR Not Detected (NotDetected); Respiratory Syncytial Virus Not Detected (NotDetected); Rhinovirus/Enterovirus Not Detected (NotDetected)
[2021-11-16 14:31] LABS: Lactic Acid Follow Up (RFLX 1) 1.2 mmol/L (0.7-2.1)
--- NOTE | 2021-11-16 15:02 | PC.NURSE ---
Report given to Shannan PARDO
--- NOTE | 2021-11-16 15:26 | PC.NURSE ---
pt to 2nd floor with DAVID Evans via [facility].
--- NOTE | 2021-11-16 15:29 | PC.NURSE ---
patient arrived from ED by wheelchair
--- NOTE | 2021-11-16 15:31 | PC.NURSE ---
Spoke to DAVID Evans regarding letting Ira in admissions know he was going home to get her 'blood sugar reader, that she was not acting right. Patient was already headed up to 2nd floor when we became aware of this news so I passed it on to DAVID Evans on 2nd floor. She reports she would notify her Nurse, Shannan. Her last blood glucose check was at 13:18 and read 285 mg/dL. DAVID Evans was made aware of that
--- NOTE | 2021-11-16 16:16 | PC.NURSE ---
Patient has DM Type 1 uses Dexcom; patient requests to continue her home regimen to control her glucose levels. Spoke with Dr. Siegel, javier v.o. for patient to continue her home regimen to control her glucose levels. Due to patient having to take off her Dexcom meter for her CT scan she requested a fingerstick by us to check glucose level resulting 224, as it takes her Dexcom [address] to [address]. Per Dr. Siegel v.o. to discontinue Insulin Sliding Scale & Fingersticks. Patient states she will let us know what she medication she uses and how much she administers.
[2021-11-16 16:37] LABS: POC Glucose,Bedside 224 (70-110)
--- NOTE | 2021-11-16 19:43 | HMH.HP ---
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 She was in our office 4 days ago for routine medical exam, received the Prevnar 20 pneumonia shot, but otherwise feeling good and had normal vital signs. She states that that night she began to have some joint aches but really did not think much about it but the next day began to have worsening fatigue and myalgias. Denies rash, specific joint tenderness or swelling over her baseline knee tendinitis, denies sputum production until today, denied skin rash or other unusual exposures. Denies recent dental issues. Went to [place] with her a month ago but no unusual animal or water exposures. Has a dog at home but no recent animal bites. No exposures to small children. When she arrived in the emergency department she was found to have low pulse oximetry compared to baseline. Elevated white count and lactate and met sepsis criteria. She was also found to have multilobar infiltrates on chest x-ray. CT scan of chest showed that these did not appear to be emboli or abscess issues or metastatic in nature but simply multilobar pneumonia issues CT of abdomen and pelvis was essentially unremarkable. Patient was admitted with IV fluids, and antibiotic therapy with vancomycin, Rocephin and azithromycin. [facility] History I have reviewed the patient's past medical history: Yes Medical History: Reports:: Diabetes Mellitus Type 1, Hyperlipidemia, Hypertension Denies:: Cancer, Diabetes Mellitus Type 2, Internal Pacemaker, MRSA, Seizures *Have you ever received a pneumonia vaccine?: Yes *Have you received a flu vaccine this season?: Yes Laterality Cases: Left: Arthroscopy Shoulder, Bilateral: Tonsillectomy Other Surgeries: Yes: Cholecystectomy, , Other. No: Pacemaker Amputation: No Fractures: No - *Social History Last grade of school completed: Advanced degree Smoking Status: Never smoker Alcohol Intake: current Alcohol Intake Frequency:: holidays/special occasions only Substance Use Type: denies use *Occupational Status:: employed Housing: house Household Members: spouse *Travel in the last 8 weeks: Inside the [facility] Family Hx:: Coronary Artery Disease, Hyperlipidemia, Hypertension Review of Systems - Review of Systems Review of systems:: pertinent systems reviewed and negative unless documented below - *Neurologic Reports weakness Meds Home Medications Medication Instructions Recorded Confirmed Type Rosuvastatin Calcium [Crestor] 20 mg PO DAILY 11/08/17 11/16/21 History lisinopriL [Lisinopril 2.5mg Tab] 2.5 mg PO DAILY 11/08/17 11/16/21 History cyanocobalamin (vitamin B-12) 1,000 mcg IM MONTHLY #1 ml 07/26/18 11/16/21 History 1,000 mcg/mL injection solution Insulin Aspart (Niacinamide) 1 unit SQ TID 06/12/20 11/16/21 History [Fiasp 100 Unit/ml Flextouch] Insulin Glargine,Hum.rec.anlog 10 unit SQ AM 11/16/21 11/16/21 History [Basaglar Kwikpen U-100] Insulin Glargine,Hum.rec.anlog 26 units SQ HS 11/16/21 11/16/21 History [Basaglar Kwikpen U-100] Allergies Allergy/AdvReac Type Severity Reaction Status Date / Time No Known Allergies Allergy Verified 08/28/21 08:14 Exam Vital signs and Labs for Last 24 Hours: Temp Pulse Resp BP Pulse Ox 99.2 F 102 H 17 123/56 L 93 L 11/16/21 19:17 11/16/21 19:17 11/16/21 19:17 11/16/21 19:17 11/16/21 19:17 Laboratory Results - last 24 hr 11/16/21 09:25: SARS-CoV-2 (PCR) Not detected, Influenza A Untype (PCR) Not detected, Influenza Type B (PCR) Not detected 11/16/21 09:55: WBC 25.2 H*, RBC 4.43, Hgb 13.1, Hct 40.7, MCV 91.8, MCH 29.5, MCHC 32.2, RDW 13.8, Plt C
[2021-11-17] VITALS (8 sets, daily range): BP systolic 106–130; BP diastolic 44–62; PULSE 89–99; RESP 16–22; TEMP 37–37.9; O2SAT 84–94; BMI 26.5
--- NOTE | 2021-11-17 04:06 | PC.NURSE ---
Pt is alert and oriented x 4. Per dayshift RN, pt asked to control her own blood sugar. Ok'd by Dr. Siegel. Pts dexcom is still calibrating, so we have checked her blood sugar with our accuchek twice - 195, 204. Pt gave herself 20 units of basaglar at bedtime. Pt is on 2 L NC, tolerating well, O2 sat >90%. Lung sounds diminished w/ crackles on the right. IV infusing per order. Pt has rested in intervals. Call light in reach. No needs or complaints voiced at this time.
--- NOTE | 2021-11-17 06:27 | PC.NURSE ---
pts o2 sat at 0430 was 86% on 2 L NC. O2 increased to 4 L NC, O2 sat is now 93%. Pt does not c/o of increased or worsening SOA. Pt also had a temp, medicated per MAR.
--- NOTE | 2021-11-17 06:50 | PC.NURSE ---
Pts BG via dexcom - 221. Pt states she will do 6 units of Fiasp, and 10 Units of basaglar.
[2021-11-17 07:23] LABS: Basophils # 0.1 K/mm3 (0-0.2); Basophils % 0.2 % (0.1-2.0); Hematocrit 34.2 % (37.0-47.0); Lymphocytes # 1.2 K/mm3 (0.7-4.5); Lymphocytes % 6.4 % (10-50); Mean Corpuscular HGB Conc 31.6 g/dL (31.8-35.4); Mean Corpuscular Hemoglobin 28.7 pg (27.0-31.2); Mean Corpuscular Volume 90.6 fl (81-99); Mean Platelet Volume 8.6 fl (7.4-10.4); Monocytes % 5.3 % (1.7-9.3); Neutrophils # 16.7 K/mm3 (1.8-7.8); Platelet Count 232 K/mm3 (142-424); Red Blood Count 3.78 M/mm3 (4.20-5.40); White Blood Count 18.9 K/mm3 (4.8-10.8)
[2021-11-17 07:24] LABS: Chloride 105 mmol/L (98-107); Potassium 4.4 mmoL/L (3.5-5.1); Sodium 132 mmol/L (136-145)
[2021-11-17 07:28] LABS: Anion Gap 10.4 mEq/L (5-15); Calcium 7.1 mg/dl (8.4-10.2); Carbon Dioxide 21 mmol/L (22.0-30.0); Glucose 197 mg/dl (74-100)
[2021-11-17 07:45] LABS: MANUAL DIFFERENTIAL MANUAL DIFFERENTIAL (MANUAL DIFF)
[2021-11-17 07:46] LABS: Hemoglobin 10.8 g/dL (12.2-16.2)
[2021-11-17 08:05] LABS: Blood Urea Nitrogen 18 mg/dl (7-17); Creatinine Clearance Estimated 56 mL/min (50-200); Estimated Glomerular Filt Rate 72 ml/min (>60); GFR (African American) 87 ML/MIN (>60)
[2021-11-17 08:21] LABS: Lymphocytes % 8 % (10-50); Monocytes % 8 % (2-9); Neutrophils % 80 % (42-76); Total Cells Counted 100
[2021-11-17 08:22] LABS: Platelet Estimate Normal; RBC Morphology Normal
--- NOTE | 2021-11-17 09:01 | HMH.ACPN2 ---
Internal Medicine - PN: Subj *Date: 11/17/21 *Time: 09:01 Interval history: Patient states that I feel a little better this morning. Continues to require oxygen. Continues to be a little bit dyspneic with activity but at her baseline from yesterday. Has coughed up some yellowish sputum and when she takes a deep breath feels like she does need to cough. Exam Vital signs and Labs for Last 24 Hours: Temp Pulse Resp BP Pulse Ox 98.6 F 92 H 16 106/44 L 90 L 11/17/21 08:00 11/17/21 08:00 11/17/21 08:00 11/17/21 08:00 11/17/21 08:00 Laboratory Results - last 24 hr 11/16/21 09:25: SARS-CoV-2 (PCR) Not detected, Influenza A Untype (PCR) Not detected, Influenza Type B (PCR) Not detected 11/16/21 09:55: WBC 25.2 H*, RBC 4.43, Hgb 13.1, Hct 40.7, MCV 91.8, MCH 29.5, MCHC 32.2, RDW 13.8, Plt Count 320, MPV 8.4, Neut % (Auto) 88.4 H, Lymph % (Auto) 6.7 L, Creek % (Auto) 4.5, Eos % (Auto) 0.2, Baso % (Auto) 0.2, Neut # (Auto) 22.3 H, Lymph # (Auto) 1.7, Creek # (Auto) 1.1 H, Eos # (Auto) 0.1, Baso # (Auto) 0.1, Total Counted 100, Neutrophils % (Manual) 77 H, Band Neutrophils % 8.0, Lymphocytes % (Manual) 10, Monocytes % (Manual) 5, Platelet Estimate Normal, RBC Morphology Normal 11/16/21 09:55: Sodium 136, Potassium 4.5, Chloride 102, Carbon Dioxide 23, Anion Gap 15.5 H, BUN 16, Creatinine 0.80, Estimated Creat Clear 55, Estimated GFR 72, Est GFR ( Amer) 87, Glucose 255 H, Calcium 8.2 L, Total Bilirubin 0.8, AST 43 H, ALT 34, Alkaline Phosphatase 128 H, Total Protein 7.8, Albumin 4.3, Globulin 3.5 H, Albumin/Globulin Ratio 1.2 11/16/21 09:55: Lactate 2.5 H 11/16/21 09:55: ESR 56 H 11/16/21 09:55: C-Reactive Protein 304.2 H, Procalcitonin 1.30 11/16/21 10:40: Urine Color Yellow, Urine Appearance Clear, Urine pH 6.0, Ur Specific [place]iska >= 1.030, Urine Protein 1+, Urine Glucose (UA) 2+, Urine Ketones 3+, Urine Blood 1+, Urine Nitrate Negative, Urine Bilirubin Negative, Urine Urobilinogen 1.0, Ur Leukocyte Esterase Negative, Urine RBC Occasional, Urine WBC Occasional, Ur Squamous Epith Cells Occasional, Urine Bacteria Trace 11/16/21 13:17: POC Glucose 235 H 11/16/21 14:05: Chlamy pneumoniae PCR Not detected, Adenovirus (PCR) Not detected, B. pertussis DNA (PCR) Not detected, Coronavirus OC43 (PCR) Not detected, Coronavirus HKU1 (PCR) Not detected, Coronavirus 229E (PCR) Not detected, SARS-CoV-2 (PCR) Not detected, Coronavirus NL63 (PCR) Not detected, Human Metapneumovir PCR Not detected, Influenza A (H1) PCR Not detected, Influ A (H1N1/09) PCR Not detected, Influenza A (H3) PCR Not detected, Influenza Type A (PCR) Not detected, Influenza Type B (PCR) Not detected, M. pneumoniae (PCR) Not detected, Parainfluenza 1 (PCR) Not detected, Parainfluenza 2 (PCR) Not detected, Parainfluenza 3 (PCR) Not detected, Parainfluenza 4 (PCR) Not detected, RSV (PCR) Not detected, Entero/Rhino (PCR) Not detected 11/16/21 14:11: Lactate 1.2 11/16/21 16:08: POC Glucose 224 H 11/17/21 06:44: WBC 18.9 H, RBC 3.78 L, Hgb 10.8 L D, Hct 34.2 L, MCV 90.6, MCH 28.7, MCHC 31.6 L, RDW 14.0, Plt Count 232 D, MPV 8.6, Neut % (Auto) 88.0 H, Lymph % (Auto) 6.4 L, Creek % (Auto) 5.3, Eos % (Auto) 0.0 L, Baso % (Auto) 0.2, Neut # (Auto) 16.7 H, Lymph # (Auto) 1.2, Creek # (Auto) 1.0, Eos # (Auto) 0.0, Baso # (Auto) 0.1, Total Counted 100, Neutrophils % (Manual) 80 H, Band Neutrophils % 4.0, Lymphocytes % (Manual) 8 L, Monocytes % (Manual) 8, Platelet Estimate Normal, RBC Morphology Normal 11/17/21 06:44: Sodium 132 L, Potassium 4.4, Chloride 105, Carbon Dioxide 21 L, Anion Gap 10.4, BUN 18 H, Creatinine 0.80, Estimated Creat Clear 56, Estimated GFR 72, Est GFR ( Amer) 87, Glucose 197 H D, Calcium 7.1 L I & O for Last 24 hours: Intake & Output 11/14/21 11/15/21 11/16/21 11/17/21 11:59 11:59 11:59 11:59 Intake Total 1411 / 1411 Balance 1411 / 1411 Weight 136 lb 140 lb 8 oz Narrative: Alert. Pleasant. No distress on oxygen. No edema or clubbing. He
--- NOTE | 2021-11-17 13:19 | HMH.PHAVTE ---
[facility] VTE Monitoring - Patient Demographics Admission date: 11/17/21 Report Date: 11/17/21 Time: 13:19 Allergies/Adverse Reactions: Patient Allergies No Known Allergies Allergy (Verified 08/28/21 08:14) Height: 1.55 m Weight: 63.73 kg Patient Problems: Current Active Problems Pneumonia (Acute) Sepsis (Acute) Respiratory failure with hypoxia (Acute) Hypocalcemia (Acute) Overweight (BMI 25.0-29.9) (Chronic) Diabetes mellitus (Chronic) - VTE Risk Labs: VTE Related Lab Results Hgb 10.8 g/dL (12.2-16.2) L D 11/17/21 06:44 Hct 34.2 % (37.0-47.0) L 11/17/21 06:44 Plt Count 232 K/mm3 (142-424) D 11/17/21 06:44 BUN 18 mg/dl (7-17) H 11/17/21 06:44 Creatinine 0.80 mg/dl (0.52-1.04) 11/17/21 06:44 Estimated Creat Clear 56 mL/min (50-200) 11/17/21 06:44 Was VTE Risk Assessment Performed: Yes VTE Risk Level: Very Low Risk - Prophylaxis Types of VTE Prophylaxis: Pharmacological Pharmacologic Type: Enoxaparin (LOVENOX)
--- NOTE | 2021-11-17 14:45 | PC.NURSE ---
Patient at rest O2 sat on 4L 86-88. Increased O2 to 6L with 88-90% O2 Sat. Lung sounds expiratory wheezing in Left upper & Right upper and middle lobe. Decreased breath sounds in B/L lower lobes. Respiratory notified and administered DuoNeb x 1 dose with no significant changes noted. Increased O2 to 10L higher flow with O2 sat 88%. Patient is mouth breather and tried Venti mask 15L at 50% O2 Sats 87-89%. Provider notified recvd. v.o. for Lasix 40mg IV x 1 dose & Solu-medrol 125mg IV x 1 dose.
--- NOTE | 2021-11-17 15:26 | XR_ITS ---
PROCEDURE INFORMATION: Exam: XR Chest Exam date and time: 11/17/2021 3:29 PM Age: 66 years old Clinical indication: Other: Decreasing o2 sats; Additional info: Decreased o2 sats TECHNIQUE: Imaging protocol: Radiologic exam of the chest. Views: 1 view. COMPARISON: CR XR CHEST 2V 11/16/2021 11:23 AM FINDINGS: Lungs: Increasing consolidation in the bilateral lung bases and possibly right upper lobe. Pleural spaces: Unremarkable. No pleural effusion. No pneumothorax. Heart/Mediastinum: Unremarkable. No cardiomegaly. Bones/joints: Unremarkable. IMPRESSION: Increasing consolidation in the bilateral lung bases and possibly the right upper lobe. Worrisome for multifocal pneumonia. Follow-up is recommended.
[2021-11-17 15:50] LABS: ABG Base Excess -0.7 mmol/L (-2.4-2.3); ABG HCO3 22.8 mmhg (22.0-26.0); ABG Oxygen Saturation 96 % (90-100); ABG PCO2 31.4 mmhg (35.0-45.0); ABG PH 7.48 mmol/L (7.35-7.45); ABG TCO2 23.8 mmhg (23-27)
[2021-11-17 15:54] LABS: Allen's Test Acceptable; Source Right Radial
--- NOTE | 2021-11-17 16:39 | PC.NURSE ---
Addendum entered by Lesa Oconnor RN 11/17/21 17:08: RIGHT SIDED CRACKLES Original Note: PT IS RESTING IN BED WITH FAMILY AT BEDSIDE. ALERT AND ORIENTED X4. PT HAS HAD INCREASED SOA T/O THE SHIFT. PT STARTED THIS MORNING ON 4 L NC AND OXYGEN HAS RAPIDLY NEEDED INCREASED T/O THE SHIFT. PT WAS ONLY 88-90% ON 50 % VENTI MASK. NOTIFIED PCP TO GET ORDER FOR VAPOTHERM. PT WAS TRANSFERRED TO ROOM 216 FOR CLOSER MONITORING AND FOR POTENTIAL STEP DOWN STATUS. PT IS NOW ON VAPOTHERM 40 L AND 70% FIO2 WITH AN O2 SATURATION 92-96%. PURWICK IN PLACE. DIURESING WELL. LUNG SOUNDS DIMINISHED WITH LEFT SIDED CRACKLES. DR DUPONT IS INVOLVED WITH PT'S CARE AND HE STATED HE WANTED PT TO BE NPO AFTER MIDNIGHT FOR POTENTIAL BRONCHOSCOPY. PCP STATED HE WOULD BE IN TO SEE PT THIS EVENING. WILL CONTINUE TO MONITOR.
--- NOTE | 2021-11-17 17:23 | PC.WOUNDNOTE ---
BG WAS 141 PER DEXCOM. PT TOOK 6 UNITS OF FIASP.
[2021-11-18] VITALS (9 sets, daily range): BP systolic 110–128; BP diastolic 61–74; PULSE 67–89; RESP 17–20; TEMP 36.6–36.8; O2SAT 93–97; BMI 26.1
--- NOTE | 2021-11-18 05:18 | PC.NURSE ---
Pt is currently awake in bed. Remains on Vapotherm 40 L 70%. Lungs are diminished. O2 sats this AM is mid 90s. Pt denies any soa this AM. O2 sats noted last night to decline with exertion as low as 89% but rebound quickly. She has c/o a headache x2. Medicated per may. Purewick is in place. Urine output has been good. Pt stated this am that she would like to wait and take her basaglar around 10 am because of being NPO. Call light within reach.
[2021-11-18 06:17] LABS: Basophils % 0.2 % (0.1-2.0); Hematocrit 36.4 % (37.0-47.0); Lymphocytes # 0.9 K/mm3 (0.7-4.5); Lymphocytes % 4.6 % (10-50); Mean Corpuscular HGB Conc 32.9 g/dL (31.8-35.4); Mean Corpuscular Volume 91.2 fl (81-99); Mean Platelet Volume 8.6 fl (7.4-10.4); Monocytes # 0.6 K/mm3 (0.1-1.0); Monocytes % 3.4 % (1.7-9.3); Neutrophils # 16.7 K/mm3 (1.8-7.8); Neutrophils % 91.7 % (37.0-80.0); Platelet Count 289 K/mm3 (142-424); Red Cell Distribution Width 13.9 % (11.5-17.5); White Blood Count 18.2 K/mm3 (4.8-10.8)
[2021-11-18 06:19] LABS: MANUAL DIFFERENTIAL MANUAL DIFFERENTIAL (MANUAL DIFF)
[2021-11-18 06:23] LABS: Anion Gap 12.2 mEq/L (5-15); Blood Urea Nitrogen 23 mg/dl (7-17); Calcium 8.2 mg/dl (8.4-10.2); Carbon Dioxide 23 mmol/L (22.0-30.0); Chloride 104 mmol/L (98-107); Creatinine Clearance Estimated 56 mL/min (50-200); Estimated Glomerular Filt Rate 72 ml/min (>60); GFR (African American) 87 ML/MIN (>60); Glucose 243 mg/dl (74-100); Lactate Dehydrogenase 221 U/L (313-618); Potassium 4.2 mmoL/L (3.5-5.1); Sodium 135 mmol/L (136-145)
[2021-11-18 06:27] LABS: C-Reactive Protein 230.4 mg/L (0-4)
[2021-11-18 07:18] LABS: Anisocytosis 1+; Hypochromasia 1+; Lymphocytes % 6 % (10-50); Monocytes % 5 % (2-9); Neutrophils % 89 % (42-76); Platelet Estimate Normal; Total Cells Counted 100
[2021-11-18 07:33] LABS: Hemoglobin 11.9 g/dL (12.2-16.2)
--- NOTE | 2021-11-18 08:45 | HMH.ACPN2 ---
Internal Medicine - PN: Subj *Date: 11/18/21 *Time: 08:45 Interval history: Through the day yesterday patient had some increasing oxygen requirements and ended up being stabilized on Vapotherm. She had a few more crackles on exam last night, and we adjusted antibiotic coverage to replace ceftriaxone with cefepime. I discussed case over the phone with Dr. francisco, he is scheduled to see her today and he had some recommendations for lab testing for Legionella and other organisms. Otherwise made no changes to management. This morning patient is better, states that she had a very restful night and we did not have to bump up oxygenation therapy through the night. She feels that she is little bit better in regards to breathing more easily. Exam Vital signs and Labs for Last 24 Hours: Temp Pulse Resp BP Pulse Ox 98.2 F 76 18 116/65 97 11/18/21 08:00 11/18/21 08:00 11/18/21 08:00 11/18/21 08:00 11/18/21 08:00 Laboratory Results - last 24 hr 11/17/21 15:26: Specimen Source Right radial, O2 % 70% 40l, ABG pH 7.48 H, ABG pCO2 31.4 L, ABG pO2 69.0 L, ABG HCO3 22.8, ABG Total CO2 23.8, ABG O2 Saturation 96, ABG Base Excess -0.7, Wero Test Acceptable 11/18/21 05:52: WBC 18.2 H, RBC 4.00 L, Hgb 11.9 L D, Hct 36.4 L, MCV 91.2, MCH 30.0, MCHC 32.9, RDW 13.9, Plt Count 289, MPV 8.6, Neut % (Auto) 91.7 H, Lymph % (Auto) 4.6 L, Moore % (Auto) 3.4, Eos % (Auto) 0.0 L, Baso % (Auto) 0.2, Neut # (Auto) 16.7 H, Lymph # (Auto) 0.9, Moore # (Auto) 0.6, Eos # (Auto) 0.0, Baso # (Auto) 0.0, Total Counted 100, Neutrophils % (Manual) 89 H, Lymphocytes % (Manual) 6 L, Monocytes % (Manual) 5, Platelet Estimate Normal, Hypochromasia 1+, Anisocytosis 1+ 11/18/21 05:52: Sodium 135 L, Potassium 4.2, Chloride 104, Carbon Dioxide 23, Anion Gap 12.2, BUN 23 H D, Creatinine 0.80, Estimated Creat Clear 56, Estimated GFR 72, Est GFR ( Amer) 87, Glucose 243 H D, Calcium 8.2 L, Lactate Dehydrogenase 221 L, C-Reactive Protein 230.4 H I & O for Last 24 hours: Intake & Output 11/15/21 11/16/21 11/17/21 11/18/21 11:59 11:59 11:59 11:59 Intake Total 1411 / 1411 1300 / 1300 Output Total 1950 / 1950 Balance 1411 / 1411 -650 / -650 Weight 136 lb 140 lb 8 oz 138 lb 6 oz Microbiology Reports for the Last 24 Hours: Microbiology 11/17/21 08:30 Sputum - Expectorated Sputum Gram Stain - Final 11/17/21 08:30 Sputum - Expectorated Sputum Sputum Culture - Preliminary 11/17/21 08:30 Sputum - Expectorated Sputum KANCHAN Preparation - Final Narrative: Patient is alert. Oriented. Talkative. Able to do sentences with minimal dyspnea. Still with rhonchi in her chest, mild crackles in the bases but about the same as yesterday. Heart rate regular. Abdomen soft, perfusion is good in her extremities. Abdomen soft and nontender. Assessment and Plan (1) Pneumonia Status: Acute Qualifiers: Pneumonia type: due to unspecified organism Laterality: bilateral Lung location: unspecified part of lung Qualified Code(s): J18.9 - Pneumonia, unspecified organism Category: Medical Code(s): J18.9 - Pneumonia, unspecified organism (2) Respiratory failure with hypoxia Status: Acute Qualifiers: Chronicity: acute Qualified Code(s): J96.01 - Acute respiratory failure with hypoxia Category: Medical Code(s): J96.91 - Respiratory failure, unspecified with hypoxia (3) Sepsis Status: Acute Qualifiers: Sepsis type: sepsis due to unspecified organism Sepsis acute organ dysfunction status: with acute organ dysfunction Severe sepsis acute organ dysfunction type: acute respiratory failure Acute respiratory failure type: with hypoxia Severe sepsis shock status: without septic shock Qualified Code(s): A41.9 - Sepsis, unspecified organism; R65.20 - Severe sepsis without septic shock; J96.01 - Acute respiratory failure with hypoxia Category: Medical Code(s): A41.9 - Sepsis, unspecified organism (4) Diabetes
--- NOTE | 2021-11-18 10:02 | HMH.PULMCON ---
*Admission Date: 11/17/21 *Reason for consult:: Acute hypoxic respiratory failure *History of present illness: Ms. Tellez is a 66-year-old pleasant female admitted to the hospital over the weekend with progressively worsening respiratory distress that initially started as a flulike symptoms followed by worsening shortness and febrile episodes along with cough and only minimal productive phlegm. No significant prior respiratory complaints. No known sick contacts. [facility] History Medical History: Reports:: Diabetes Mellitus Type 1, Hyperlipidemia, Hypertension Denies:: Cancer, Diabetes Mellitus Type 2, Internal Pacemaker, MRSA, Seizures *Have you ever received a pneumonia vaccine?: Yes *Have you received a flu vaccine this season?: Yes Laterality Cases: Left: Arthroscopy Shoulder, Bilateral: Tonsillectomy Other Surgeries: Yes: Cholecystectomy, , Other. No: Pacemaker Amputation: No Fractures: No - *Social History Last grade of school completed: Advanced degree Smoking Status: Never smoker Alcohol Intake: current Alcohol Intake Frequency:: holidays/special occasions only Substance Use Type: denies use *Occupational Status:: employed Housing: house Household Members: spouse *Travel in the last 8 weeks: Inside the [place] Family Hx:: Coronary Artery Disease, Hyperlipidemia, Hypertension ROS - Cons Reports anorexia, Reports body ache(s), Reports chills, Reports fever(s) - Eyes Denies change in vision - ENT Denies bleeding gums, Denies nosebleed - Card Reports shortness of breath, Reports shortness of breath with activity, Reports shortness of breath when lying down - Resp Respiratory: Reports shortness of breath, Reports chest congestion, Reports cough, Reports dyspnea on exertion, Reports cough with sputum production - GI Gastrointestingal: Denies: vomiting blood, nausea - Musk Musculoskeletal: Reports muscle weakness, Reports muscle aches - Psych Denies thoughts of hurting/killing others, Denies thoughts of hurting/killing yourself Meds Home Medications Medication Instructions Recorded Confirmed Type cyanocobalamin (vitamin B-12) 1,000 mcg IM MONTHLY #1 ml 07/26/18 11/16/21 History 1,000 mcg/mL injection solution Insulin Aspart (Niacinamide) 1 unit SQ TID 06/12/20 11/16/21 History [Fiasp 100 Unit/ml Flextouch] Insulin Glargine,Hum.rec.anlog 10 unit SQ AM 11/16/21 11/16/21 History [Basaglar Kwikpen U-100] Insulin Glargine,Hum.rec.anlog 26 units SQ HS 11/16/21 11/16/21 History [Basaglar Kwikpen U-100] Rosuvastatin Calcium [Crestor 20 20 mg PO HS 11/17/21 11/17/21 History mg Tablets] lisinopriL [Lisinopril] 2.5 mg PO DAILY 11/17/21 11/17/21 History Allergies Allergy/AdvReac Type Severity Reaction Status Date / Time No Known Allergies Allergy Verified 08/28/21 08:14 Exam - Constitutional Constitutional:: Absent: no acute distress, comfortable - HENMT Exam HENMT: Present: normocephalic, atraumatic - Eye Exam Eyes:: Present: normal appearance both eyes and related structures, eyelids normal, normal conjunctiva - Neck Exam Neck:: Present: normal visual inspection, no lymphadenopathy - Respiratory Exam Respiratory:: Present: respiratory distress, decreased breath sounds, rhonchi. Absent: wheezing - Cardiovascular Exam Cardiac:: Absent: S1, S2, chest pain - GI Exam GI:: Present: soft, no hepatosplenomegaly - Skin Exam Skin: Present: warm, no rash - Neurological Exam Neurological: Present: alert, awake, normal cognition - Extremities Exam Extremities: Present: no cyanosis, no clubbing, no edema Internal Medicine - CN: Reslt - Labs CBC & Chem 7: 11/18/21 05:52 11/18/21 05:52 Labs: Short CBC 11/18/21 Range/Units 05:52 WBC 18.2 H (4.8-10.8) K/mm3 Hgb 11.9 L D (12.2-16.2) g/dL Hct 36.4 L (37.0-47.0) % Plt Count 289 (142-424) K/mm3 BMP 11/18/21 05:52 Sodium 135 L Potassium 4.2 Chloride 104 Carbon Dioxide
--- NOTE | 2021-11-18 12:50 | PC.NURSE ---
rounded on patient. no concerns or questions at this time. stating she continues to feel short of breath. attempting to eat some lunch, encouraged her to ring out with any needs or concerns.
--- NOTE | 2021-11-18 17:47 | PC.NURSE ---
Pt is alert and oriented x4. Fine crackles noted to bilateral lung bases and diminished t/o. She has been weaned to vapotherm 30L/40%% fio2 w/O2 sats measuring >93%. She has a pure wick in place with straw colored urine draining. She has been treated for a headache with tylenol administered approx q4hrs around the clock. No other complaints at this time. Bed is locked and in the lowest position, call light is within reach.
[2021-11-18 19:20] LABS: NT Pro Brain Natriuretic Pep. 1080 pg/mL (0-125)
[2021-11-19] VITALS (12 sets, daily range): BP systolic 120–132; BP diastolic 60–71; PULSE 77–97; RESP 16–18; TEMP 36.6–36.9; O2SAT 92–97; BMI 27.1
[2021-11-19 01:58] LABS: POC Glucose,Bedside 235 (70-110)
[2021-11-19 01:58] LABS: POC Glucose,Bedside 225 (70-110)
--- NOTE | 2021-11-19 04:45 | PC.NURSE ---
pt has rested well t/o shift, vapotherm was increased to 40L/55% to keep O2 sats 92-93%, no complaints of SOA, has complained of headache two times this shift and was treated per MAY, pt does get SOA with exertion, purewick in place
--- NOTE | 2021-11-19 06:00 | XR_ITS ---
PROCEDURE INFORMATION: Exam: XR Chest Exam date and time: 11/19/2021 5:39 AM Age: 66 years old Clinical indication: Condition or disease; Lung condition and disease; Pneumonia; Additional info: Pnm TECHNIQUE: Imaging protocol: Radiologic exam of the chest. Views: 1 view. COMPARISON: CR XR CHEST PORTABLE 11/17/2021 3:29 PM FINDINGS: Lungs: Stable patchy bilateral lower lung infiltrates. Pleural spaces: Unremarkable. No pleural effusion. No pneumothorax. Heart/Mediastinum: Unremarkable. No cardiomegaly. Bones/joints: Unremarkable. IMPRESSION: Stable bilateral lower lung infiltrates.
--- NOTE | 2021-11-19 09:17 | HMH.PULMPN ---
Internal Medicine - PN: Subj *Date: 11/19/21 *Time: 10:35 Interval history: No acute respiratory distress events overnight. Noted to have hypoxic episode and oxygen requirements were escalated. Exam - Constitutional Constitutional:: Present: no acute distress, comfortable - HENMT Exam HENMT: Present: normocephalic, atraumatic - Eye Exam Eyes:: Present: normal appearance both eyes and related structures, eyelids normal - Neck Exam Neck:: Present: normal visual inspection, thyroid normal - Respiratory Exam Respiratory:: Present: able to speak in complete sentences, no respiratory distress, crackles. Absent: wheezing - Cardiovascular Exam Cardiac:: Present: S1, S2. Absent: chest pain - GI Exam GI:: Present: soft, no hepatosplenomegaly - Skin Exam Skin: Present: warm, no rash - Neurological Exam Neurological: Present: alert, awake - Extremities Exam Extremities: Present: no cyanosis, no clubbing, no edema Assessment and Plan (1) Pneumonia Status: Acute Qualifiers: Pneumonia type: due to unspecified organism Laterality: bilateral Lung location: unspecified part of lung Qualified Code(s): J18.9 - Pneumonia, unspecified organism Category: Medical Code(s): J18.9 - Pneumonia, unspecified organism (2) Respiratory failure with hypoxia Status: Acute Qualifiers: Chronicity: acute Qualified Code(s): J96.01 - Acute respiratory failure with hypoxia Category: Medical Code(s): J96.91 - Respiratory failure, unspecified with hypoxia (3) Sepsis Status: Acute Qualifiers: Sepsis type: sepsis due to unspecified organism Sepsis acute organ dysfunction status: with acute organ dysfunction Severe sepsis acute organ dysfunction type: acute respiratory failure Acute respiratory failure type: with hypoxia Severe sepsis shock status: without septic shock Qualified Code(s): A41.9 - Sepsis, unspecified organism; R65.20 - Severe sepsis without septic shock; J96.01 - Acute respiratory failure with hypoxia Category: Medical Code(s): A41.9 - Sepsis, unspecified organism (4) Diabetes mellitus Status: Chronic Qualifiers: Diabetes mellitus type: type 2 Diabetes mellitus long term care social worker insulin use: with correction use Diabetes mellitus complication status: with hyperglycemia Qualified Code(s): E11.65 - Type 2 diabetes mellitus with hyperglycemia; Z79.4 - custodial (current) use of insulin Category: Medical Code(s): E11.9 - Type 2 diabetes mellitus without complications (5) Overweight (BMI 25.0-29.9) Status: Chronic Category: Medical Code(s): E66.3 - Overweight (6) Hypocalcemia Status: Acute Category: Medical Code(s): E83.51 - Hypocalcemia - Assessment and plan all Dx Assessment and Plan for all problems:: #Acute hypoxic respiratory failure: #Community-acquired pneumonia: 66-year-old female. No prior respiratory complaints. Worsening respiratory's along with flulike symptoms cough and productive phlegm for the last [address] chest on admission reviewed, no evidence of pulmonary embolism, showed dense right lower lobe and left lower lobe consolidation noted along with multiple patchy infiltrates in the rest of the lung parenchyma and also in subpleural location concerning for hematogenous spread. No prior respiratory complaints. Never used any inhalers. Personal history of allergies. No known sick contact exposure. No other environmental exposures recently. Received PCV 20 vaccine 5 days ago. Symptoms started around Thursday complaining of flulike symptoms progressed to worsening shortness of breath and chest tightness. Respiratory status significantly worsened from admission at 2 L nasal cannula needing high flow nasal cannula, antibiotics were escalated over the weekend to vancomycin and cefepime along with azithromycin and patient also received dose of steroids and diuretics. Respiratory status remained relatively stable since yesterday. Interval
[2021-11-19 09:58] LABS: Chloride 104 mmol/L (98-107); Potassium 3.9 mmoL/L (3.5-5.1); Sodium 137 mmol/L (136-145)
[2021-11-19 10:01] LABS: Alanine Aminotransferase 26 U/L (12-78); Albumin Level 3.3 g/dl (3.5-5.0); Albumin/Globulin Ratio 1.1 (1.1-1.8); Alkaline Phosphatase 137 U/L (38-126); Anion Gap 8.9 mEq/L (5-15); Aspartate Amino Transferase 32 U/L (14-36); Bilirubin,Total < 0.1 mg/dl (0.2-1.3); Blood Urea Nitrogen 28 mg/dl (7-17); Calcium 7.6 mg/dl (8.4-10.2); Carbon Dioxide 28 mmol/L (22.0-30.0); Creatinine Clearance Estimated 58 mL/min (50-200); Estimated Glomerular Filt Rate 63 ml/min (>60); GFR (African American) 76 ML/MIN (>60); Globulin 3.1 g/dL (1.3-3.2); Glucose 202 mg/dl (74-100); Hemoglobin A1C 8.1 % (4.0-6.0); Total Protein,Serum 6.4 g/dl (6.3-8.2)
[2021-11-19 10:09] LABS: Basophils # 0.1 K/mm3 (0-0.2); Basophils % 0.3 % (0.1-2.0); Eosinophils # 0.1 K/mm3 (0.0-0.4); Eosinophils % 0.6 % (0.1-12.0); Hematocrit 36.9 % (37.0-47.0); Hemoglobin 11.7 g/dL (12.2-16.2); Lymphocytes # 1.8 K/mm3 (0.7-4.5); Lymphocytes % 8.5 % (10-50); Mean Corpuscular HGB Conc 31.6 g/dL (31.8-35.4); Mean Corpuscular Hemoglobin 28.9 pg (27.0-31.2); Mean Corpuscular Volume 91.4 fl (81-99); Mean Platelet Volume 8.8 fl (7.4-10.4); Monocytes # 1.4 K/mm3 (0.1-1.0); Monocytes % 6.6 % (1.7-9.3); Neutrophils # 18.1 K/mm3 (1.8-7.8); Platelet Count 391 K/mm3 (142-424); Red Blood Count 4.04 M/mm3 (4.20-5.40); Red Cell Distribution Width 14.1 % (11.5-17.5); White Blood Count 21.5 K/mm3 (4.8-10.8)
[2021-11-19 10:13] LABS: MANUAL DIFFERENTIAL MANUAL DIFFERENTIAL (MANUAL DIFF)
[2021-11-19 10:50] LABS: Lymphocytes % 15 % (10-50); Monocytes % 4 % (2-9); Neutrophils % 81 % (42-76); Total Cells Counted 100
[2021-11-19 10:51] LABS: Hypochromasia 1+; Platelet Estimate Normal
--- NOTE | 2021-11-19 11:41 | PC.NURSE ---
RESP CARE NOTE: Pt placed on a HFNC at 6 lpm, SpO2 at 98%. Patient weaned further per Dr oVss order, to 3 lpm hfnc. SPO2 remaining at 94% consistently. Will continue to monitor patient and adjust oxygen accordingly.
--- NOTE | 2021-11-19 11:43 | HMH.PTEV ---
Physical Therapy Evaluation Rehab PT IP Evaluation Start: 11/19/21 09:27 Freq: ONCE Status: Active Protocol: Document 11/19/21 11:30 PWCONTRERAS (Rec: 11/19/21 11:43 PWCONTRERAS [id number]) Subjective/History History History This is the physical therapy IP IE for Laila Tellez, a 66 y/o female admitted to [facility] to monitor pneumonia and sepsis. Pt has h/o type II diabetes, hyperlipidemia, and hypertension. Written by Ana Rosa Tapia, SHARIF Subjective Subjective Pt reports feeling relatively better today. During eval, pt performed EOB exercises and performed STS transfers to ambulate to transfer to recliner - ambulation distance limited by vapotherm. Rehab PT IP Eval Objective Appearance Patient Behavior Appropriate,Cooperative Patient Orientation Person,Place,Time,Name, Situation Difficulty following instructions none Speech Pattern Clear,Appropriate,Coherent Ambulation Patient Able to Ambulate Yes Ambulation Observation IP General Gait Pattern Observation Wide Based Gait Ambulation Distance (feet) 15 Ambulation Assistive Device None Ambulation Ability Supervision/Stand by,Contact Guard/Hand Hold Balance Ability to Arise Able, uses arms to help Sitting Balance Steady, safe Standing Balance Steady, wide stance Dynamic Sitting Balance Ability Normal Dynamic Standing Balance Ability Fair Transfers Bed Transfer Ability Independent Chair Transfer Ability Independent Sit to Stand Bed Transfer Ability Supervision/Stand by Sit to Stand Chair Transfer Ability Supervision/Stand by Rehab PT IP prob,goals,plan Problems Date of Evaluation: 11/19/21 PT IP Problems Transfers,Gait,Balance,Self care,Safety Rehab Potential Rehab Potential Good Equipment Needs Assistive Devices None / NA Plan PT Intervention Plan Transfers,Gait,Balance,Self care,Safety,Therapeutic Exercise PT Plan Frequency BID Duration LOS Discharge Goals Sit to Stand Chair Transfer Ability Independent Ambulation Assistive Device None Ambulation Distance (feet) 25 Discharge Plan PT Discharge Plan Pt will bene
--- NOTE | 2021-11-19 11:52 | PC.NURSE ---
Addendum entered by Jayne Kelley RN 11/19/21 18:07: 1630 sugar per dexcom 299 Original Note: Pt sugar per Dexcom at 1143 was 190.
--- NOTE | 2021-11-19 11:52 | HMH.ACPN2 ---
Internal Medicine - PN: Subj *Date: 11/19/21 *Time: 18:14 Interval history: Required increased oxygen requirement overnight. Had tolerated the wean of Vapotherm somewhat during the day but overnight required an increase in FiO2 and flow. Appears comfortable this morning on exam. Daughter at bedside states patient looks better to her. Still having some difficulty with high blood sugars. Patient has been self administering insulin and using her Dexcom to monitor glucose. Expressed the need to her today for us to manage the doses. We can continue to use her Dexcom but would like to transition to a different insulin regimen. Labs this morning reviewed, had an elevated BNP overnight, not sure why this was obtained. White cell count slightly increased from yesterday though not significant. Kidney function stable. Improved appetite this morning. Remains afebrile. No nausea or vomiting. Exam Vital signs and Labs for Last 24 Hours: Temp Pulse Resp BP Pulse Ox 97.9 F 90 16 130/66 97 11/19/21 11:49 11/19/21 11:49 11/19/21 11:49 11/19/21 11:49 11/19/21 11:49 Laboratory Results - last 24 hr 11/16/21 18:13: POC Glucose 235 H 11/18/21 05:03: POC Glucose 225 H 11/18/21 18:54: NT-Pro-B Natriuret Pep 1080 H 11/19/21 09:37: WBC 21.5 H*, RBC 4.04 L, Hgb 11.7 L, Hct 36.9 L, MCV 91.4, MCH 28.9, MCHC 31.6 L, RDW 14.1, Plt Count 391 D, MPV 8.8, Neut % (Auto) 84.0 H, Lymph % (Auto) 8.5 L, [place] % (Auto) 6.6, Eos % (Auto) 0.6, Baso % (Auto) 0.3, Neut # (Auto) 18.1 H, Lymph # (Auto) 1.8, [place] # (Auto) 1.4 H, Eos # (Auto) 0.1, Baso # (Auto) 0.1, Total Counted 100, Neutrophils % (Manual) 81 H, Lymphocytes % (Manual) 15, Monocytes % (Manual) 4, Platelet Estimate Normal, Hypochromasia 1+ 11/19/21 09:37: Sodium 137, Potassium 3.9, Chloride 104, Carbon Dioxide 28, Anion Gap 8.9, BUN 28 H, Creatinine 0.90, Estimated Creat Clear 58, Estimated GFR 63, Est GFR ( Amer) 76, Glucose 202 H, Calcium 7.6 L, Total Bilirubin < 0.1 L, AST 32 D, ALT 26, Alkaline Phosphatase 137 H, Total Protein 6.4, Albumin 3.3 L, Globulin 3.1, Albumin/Globulin Ratio 1.1 11/19/21 09:37: Hemoglobin A1c 8.1 H I & O for Last 24 hours: Intake & Output 11/16/21 11/17/21 11/18/21 11/19/21 23:59 23:59 23:59 23:59 Intake Total 240 / 240 2471 / 2471 1164 / 1164 340 / 340 Output Total 1200 / 1950 1350 / 1650 600 / 600 Balance 240 / 240 1271 / 521 -186 / -486 -260 / -260 Weight 63.645 kg 63.73 kg 62.76 kg 65.119 kg Microbiology Reports for the Last 24 Hours: Microbiology 11/17/21 08:30 Sputum - Expectorated Sputum Gram Stain - Final 11/17/21 08:30 Sputum - Expectorated Sputum Sputum Culture - Preliminary 11/16/21 09:55 Blood Blood Culture - Preliminary NO GROWTH AFTER 48 HOURS 11/16/21 09:55 Blood Blood Culture - Preliminary NO GROWTH AFTER 48 HOURS Narrative: - Constitutional mild distress, NC in place - *Routine HEENT Exam Head: Present: normocephalic Eye: Present: EOMI, PERRL ENT: Present: mucous membranes moist - *Routine Neck Exam Present: supple. Absent: lymphadenopathy - *Routine Respiratory Exam Present: Crackles in the right lower and middle lung field. Scant rhonchi in the left lower base. Anterior hinds are clear. No wheezing - *Routine Cardiovascular Exam Present: RRR, murmur - *Routine Abdominal Exam Present: soft, normoactive bowel sounds. Absent: tenderness - *Routine Extremities Exam Absent: cyanosis, clubbing, edema - *Routine Skin Exam Present: warm. Absent: rash - *Routine Neurological Exam Present: alert, oriented X3, CN II-XII intact. Absent: sensory deficit, motor deficit Assessment and Plan (1) Respiratory failure with hypoxia Status: Acute Qualifiers: Chronicity: acute Qualified Code(s): J96.01 - Acute respiratory failure with hypoxia Category: Medical Code(s): J96.91 - Respiratory failure, unspecified with hypoxia
[2021-11-19 14:07] LABS: Vancomycin,Trough < 5.0 ug/mL (5.0-10.0)
--- NOTE | 2021-11-19 14:36 | DIET.NUTRFU ---
Reviewed A1c with patient-8.1H. She reports she has been on vacation and has been paying close attention to diet. Reviewed menu with patient, counted carbs needed. She should be ordering 3-4 carbs each meal. She raely eats breads/pastas and oatmeal. Would benefit from portion control fruits. Patient was provided carb counting portion control handout to review to help plan meals. She has a coke at bedside, she reports it is a emergency plan for when she bottoms out. Encouraged her to see RD as outpatient if continues to have control issues. Baby Formula Worker plans to change her to insulin pump for better control.
--- NOTE | 2021-11-19 16:25 | PC.NURSE ---
Pt has rested in her bed after being up to the chair until lunch time. nad noted. lungs still contain crackles in bridger bases. bowel sounds are active in all quads. continued adjustments made to pt ssi in order to manage patients sugar. order received from DR Swann to give pt 10 units of lispro insulin at meals then follow HISS achs as well. pt was informed of this. she is slightly hesitant related to feeling her sugar is easy to drop. in depth discussion had with pt regarding her insulin. residential solar consultant also had in depth discussion with pt regarding her diet and routine for managing bg.
--- NOTE | 2021-11-19 18:00 | PC.NURSE ---
[address] Voss that the pt o2 sats were staying in the upper 80's (87-89). per md ok to increase pt o2, (up to 5lpm if needed. if any higher kennaangi to be notified)
[2021-11-20] VITALS (9 sets, daily range): BP systolic 114–144; BP diastolic 62–71; PULSE 79–90; RESP 16–20; TEMP 36.6–36.8; O2SAT 91–96
--- NOTE | 2021-11-20 02:41 | PC.NURSE ---
pt has rested some this shift, has remained on 4L NC with O2 sats 94-95%, no complaints of SOA, has complained of headache one time and was treated per MAY, blood sugar at 2100 was 363, treated per MAY, at 0230 blood sugar was 137
--- NOTE | 2021-11-20 06:00 | XR_ITS ---
PROCEDURE INFORMATION: Exam: XR Chest Exam date and time: 11/20/2021 5:46 AM Age: 66 years old Clinical indication: Condition or disease; Lung condition and disease; Pneumonia; Additional info: Pnm TECHNIQUE: Imaging protocol: Radiologic exam of the chest. Views: 1 view. COMPARISON: CR XR CHEST PORTABLE 11/19/2021 5:39 AM FINDINGS: Lungs: Similar appearance of patchy bilateral airspace opacities. Pleural spaces: Small left pleural effusion. No pneumothorax. Heart/Mediastinum: Unremarkable. No cardiomegaly. Bones/joints: Unremarkable. IMPRESSION: Similar appearance of patchy bilateral airspace opacities.
[2021-11-20 08:20] LABS: Alanine Aminotransferase 21 U/L (12-78); Albumin Level 2.9 g/dl (3.5-5.0); Albumin/Globulin Ratio 0.9 (1.1-1.8); Alkaline Phosphatase 92 U/L (38-126); Anion Gap 12.6 mEq/L (5-15); Aspartate Amino Transferase 30 U/L (14-36); Calcium 7.3 mg/dl (8.4-10.2); Carbon Dioxide 24 mmol/L (22.0-30.0); Chloride 105 mmol/L (98-107); Globulin 3.3 g/dL (1.3-3.2); Glucose 91 mg/dl (74-100); Potassium 3.6 mmoL/L (3.5-5.1); Sodium 138 mmol/L (136-145); Total Protein,Serum 6.2 g/dl (6.3-8.2)
[2021-11-20 08:41] LABS: Bilirubin,Total 0.1 mg/dl (0.2-1.3)
[2021-11-20 08:52] LABS: Blood Urea Nitrogen 20 mg/dl (7-17); Creatinine Clearance Estimated 58 mL/min (50-200); Estimated Glomerular Filt Rate 84 ml/min (>60); GFR (African American) 102 ML/MIN (>60)
[2021-11-20 08:53] LABS: C-Reactive Protein 108.1 mg/L (0-4)
[2021-11-20 09:41] LABS: Magnesium 2.1 mg/dl (1.6-2.3)
[2021-11-20 09:57] LABS: Hematocrit 31.3 % (37.0-47.0); Hemoglobin 10.7 g/dL (12.2-16.2); Red Blood Count 3.72 M/mm3 (4.20-5.40); White Blood Count 12.8 K/mm3 (4.8-10.8)
[2021-11-20 09:58] LABS: Mean Corpuscular HGB Conc 34.3 g/dL (31.8-35.4); Mean Corpuscular Hemoglobin 28.8 pg (27.0-31.2); Mean Corpuscular Volume 83.9 fl (81-99); Mean Platelet Volume 7.6 fl (7.4-10.4); Platelet Count 339 K/mm3 (142-424); Red Cell Distribution Width 13.4 % (11.5-17.5)
[2021-11-20 10:01] LABS: Basophils % 0.3 % (0.1-2.0); Eosinophils # 0.1 K/mm3 (0.0-0.4); Eosinophils % 0.5 % (0.1-12.0); Lymphocytes # 2.2 K/mm3 (0.7-4.5); Lymphocytes % 17.3 % (10-50); Monocytes # 1.1 K/mm3 (0.1-1.0); Monocytes % 8.3 % (1.7-9.3); Neutrophils # 9.4 K/mm3 (1.8-7.8); Neutrophils % 73.5 % (37.0-80.0)
--- NOTE | 2021-11-20 10:52 | EXP.ACUTE.PN ---
Subjective *Date: 11/20/21 *Time: 10:52 Medical Exam Vital signs and Labs for Last 24 Hours: Temp Pulse Resp BP Pulse Ox FiO2 97.9 F 87 16 126/64 95 45 11/20/21 08:00 11/20/21 08:00 11/20/21 08:00 11/20/21 08:00 11/20/21 08:00 11/19/21 09:20 Laboratory Results - last 24 hr 11/19/21 12:52: Vancomycin Trough < 5.0 L 11/20/21 07:41: C-Reactive Protein 108.1 H 11/20/21 07:41: WBC 12.8 H D, RBC 3.72 L, Hgb 10.7 L, Hct 31.3 L, MCV 83.9, MCH 28.8, MCHC 34.3, RDW 13.4, Plt Count 339, MPV 7.6, Neut % (Auto) 73.5, Lymph % (Auto) 17.3, [place] % (Auto) 8.3, Eos % (Auto) 0.5, Baso % (Auto) 0.3, Neut # (Auto) 9.4 H, Lymph # (Auto) 2.2, [place] # (Auto) 1.1 H, Eos # (Auto) 0.1, Baso # (Auto) 0.0 11/20/21 07:41: Sodium 138, Potassium 3.6, Chloride 105, Carbon Dioxide 24, Anion Gap 12.6, BUN 20 H D, Creatinine 0.70 D, Estimated Creat Clear 58, Estimated GFR 84, Est GFR ( Amer) 102 D, Glucose 91 D, Calcium 7.3 L, Magnesium 2.1, Total Bilirubin 0.1 L, AST 30, ALT 21, Alkaline Phosphatase 92, Total Protein 6.2 L, Albumin 2.9 L D, Globulin 3.3 H, Albumin/Globulin Ratio 0.9 L I & O for Labs for Last 24 Hours: Intake & Output 11/17/21 11/18/21 11/19/21 11/20/21 23:59 23:59 23:59 23:59 Intake Total 2471 / 2471 1164 / 1164 1420 / 1680 380 / 380 Output Total 1200 / 1950 1350 / 1650 600 / 600 0 / 0 Balance 1271 / 521 -186 / -486 820 / 1080 380 / 380 Weight 63.73 kg 62.76 kg 65.119 kg Microbiology Reports for the Last 24 Hours: Microbiology 11/17/21 08:30 Sputum - Expectorated Sputum Gram Stain - Final 11/17/21 08:30 Sputum - Expectorated Sputum Sputum Culture - Final Normal Respiratory Madonna 11/16/21 14:05 Nose - Nose MRSA Culture - Final Negative
--- NOTE | 2021-11-20 11:53 | EXP.PULM.PN ---
Subjective *Date: 12/06/21 *Time: 14:09 Interval history: No acute respiratory vents overnight. Admits continued improvement symptoms. Admits episode of respiratory distress yesterday. Admits increasing cough. Pulmonology Exam Inpatient Vital signs and Labs for Last 24 Hours: Temp Pulse Resp BP Pulse Ox FiO2 97.9 F 87 16 126/64 95 45 11/20/21 08:00 11/20/21 08:00 11/20/21 08:00 11/20/21 08:00 11/20/21 08:00 11/19/21 09:20 Laboratory Results - last 24 hr 11/19/21 12:52: Vancomycin Trough < 5.0 L 11/20/21 07:41: C-Reactive Protein 108.1 H 11/20/21 07:41: WBC 12.8 H D, RBC 3.72 L, Hgb 10.7 L, Hct 31.3 L, MCV 83.9, MCH 28.8, MCHC 34.3, RDW 13.4, Plt Count 339, MPV 7.6, Neut % (Auto) 73.5, Lymph % (Auto) 17.3, [place] % (Auto) 8.3, Eos % (Auto) 0.5, Baso % (Auto) 0.3, Neut # (Auto) 9.4 H, Lymph # (Auto) 2.2, [place] # (Auto) 1.1 H, Eos # (Auto) 0.1, Baso # (Auto) 0.0 11/20/21 07:41: Sodium 138, Potassium 3.6, Chloride 105, Carbon Dioxide 24, Anion Gap 12.6, BUN 20 H D, Creatinine 0.70 D, Estimated Creat Clear 58, Estimated GFR 84, Est GFR ( Amer) 102 D, Glucose 91 D, Calcium 7.3 L, Magnesium 2.1, Total Bilirubin 0.1 L, AST 30, ALT 21, Alkaline Phosphatase 92, Total Protein 6.2 L, Albumin 2.9 L D, Globulin 3.3 H, Albumin/Globulin Ratio 0.9 L I & O for Labs for Last 24 Hours: Intake & Output 11/17/21 11/18/21 11/19/21 11/20/21 23:59 23:59 23:59 23:59 Intake Total 2471 / 2471 1164 / 1164 1420 / 1680 380 / 380 Output Total 1200 / 1950 1350 / 1650 600 / 600 0 / 0 Balance 1271 / 521 -186 / -486 820 / 1080 380 / 380 Weight 140 lb 8 oz 138 lb 5.794 oz 143 lb 9 oz Microbiology Reports for the Last 24 Hours: Microbiology 11/17/21 08:30 Sputum - Expectorated Sputum Gram Stain - Final 11/17/21 08:30 Sputum - Expectorated Sputum Sputum Culture - Final Normal Respiratory Madonna 11/16/21 14:05 Nose - Nose MRSA Culture - Final Negative Head: normocephalic and atraumatic ENT: normal exam and normal oropharynx Neck: normal inspection and trachea midline Respiratory: accessory muscle use, rhonchi, crackles, normal respiratory effort and able to speak in complete sentences Comment:: No Wheezing Cardiac: S1/S2 Comment:: No tachycardia GI: soft and normal bowel sounds Rectal (female): deferred (female): deferred Skin: intact, warm and normal turgor Neuro: alert, awake and oriented x 3 Comment:: No Edema, No clubbing and No Cyanosis Psychiatric: normal affect and normal thought process Assessment and Plan Assessment and plan all Dx Plan of Treatment: #Acute hypoxic respiratory failure: #Community-acquired pneumonia: 66-year-old female.? No prior respiratory complaints.? Present with 1 week course of worsening flulike symptoms along with cough and productive phlegm and respiratory distress. CT chest on admission reviewed, no evidence of pulmonary embolism, showed dense right lower lobe and left lower lobe consolidation noted along with multiple patchy infiltrates in the rest of the lung parenchyma and also in subpleural location concerning for hematogenous spread. No prior respiratory complaints.? Never used any inhalers.? Personal history of allergies.? No known sick contact exposure.? No other environmental exposures recently.? Received PCV 20 vaccine 5 days prior to admission. Echocardiogram no evidence of systolic or diastolic dysfunction.? No evidence of vegetations. Sputum KANCHAN no fungal elements seen. Maxillary respiratory status continued to improve, eventually weaned from high flow nasal cannula 40 L 80% to nasal cannula and eventually to room air this morning. Saturations maintained at 90 to 94% on room air at rest. She will be discharged with oxygen therapy with exertion and at night. Antibiotics initially were escalated vancomycin and cefepime along with continuation of azithromycin and plan was to de-escalate levofloxacin to complete a total o
--- NOTE | 2021-11-20 11:57 | EXP.ACUTE.PN ---
Subjective *Date: 11/20/21 *Time: 11:57 Interval history: Overnight patient has done well, has been able to maintain oxygenation on plain nasal cannula without Vapotherm supplementation. She feels little bit more energetic. Had physical therapy yesterday which did make her very tired. Medical Exam Vital signs and Labs for Last 24 Hours: Temp Pulse Resp BP Pulse Ox FiO2 97.9 F 87 16 126/64 95 45 11/20/21 08:00 11/20/21 08:00 11/20/21 08:00 11/20/21 08:00 11/20/21 08:00 11/19/21 09:20 Laboratory Results - last 24 hr 11/19/21 12:52: Vancomycin Trough < 5.0 L 11/20/21 07:41: C-Reactive Protein 108.1 H 11/20/21 07:41: WBC 12.8 H D, RBC 3.72 L, Hgb 10.7 L, Hct 31.3 L, MCV 83.9, MCH 28.8, MCHC 34.3, RDW 13.4, Plt Count 339, MPV 7.6, Neut % (Auto) 73.5, Lymph % (Auto) 17.3, [place] % (Auto) 8.3, Eos % (Auto) 0.5, Baso % (Auto) 0.3, Neut # (Auto) 9.4 H, Lymph # (Auto) 2.2, [place] # (Auto) 1.1 H, Eos # (Auto) 0.1, Baso # (Auto) 0.0 11/20/21 07:41: Sodium 138, Potassium 3.6, Chloride 105, Carbon Dioxide 24, Anion Gap 12.6, BUN 20 H D, Creatinine 0.70 D, Estimated Creat Clear 58, Estimated GFR 84, Est GFR ( Amer) 102 D, Glucose 91 D, Calcium 7.3 L, Magnesium 2.1, Total Bilirubin 0.1 L, AST 30, ALT 21, Alkaline Phosphatase 92, Total Protein 6.2 L, Albumin 2.9 L D, Globulin 3.3 H, Albumin/Globulin Ratio 0.9 L I & O for Labs for Last 24 Hours: Intake & Output 11/17/21 11/18/21 11/19/21 11/20/21 11:59 11:59 11:59 11:59 Intake Total 1411 / 1411 1300 / 1300 1504 / 1504 1460 / 1460 Output Total 1950 / 1950 1200 / 1200 0 / 0 Balance 1411 / 1411 -650 / -650 304 / 304 1460 / 1460 Weight 140 lb 8 oz 138 lb 5.794 oz 143 lb 9 oz Microbiology Reports for the Last 24 Hours: Microbiology 11/17/21 08:30 Sputum - Expectorated Sputum Gram Stain - Final 11/17/21 08:30 Sputum - Expectorated Sputum Sputum Culture - Final Normal Respiratory Madonna 11/16/21 14:05 Nose - Nose MRSA Culture - Final Negative Comment:: Patient is alert, oriented. Skin turgor good. Lungs have good air movement with bibasilar crackles but improving over previous exams. Heart rate regular. Previously noted murmur noted. No edema or clubbing. No rash. Assessment and Plan *Assessment and plan (1) Pneumonia: Status: Acute Qualifiers: Laterality: bilateral Lung location: unspecified part of lung Pneumonia type: due to unspecified organism Qualified Code(s): J18.9 - Pneumonia, unspecified organism Category: Medical Code(s): J18.9 - Pneumonia, unspecified organism (2) Sepsis: Status: Acute Qualifiers: Acute respiratory failure type: with hypoxia Sepsis acute organ dysfunction status: with acute organ dysfunction Sepsis type: sepsis due to unspecified organism Severe sepsis acute organ dysfunction type: acute respiratory failure Severe sepsis shock status: without septic shock Qualified Code(s): A41.9 - Sepsis, unspecified organism; R65.20 - Severe sepsis without septic shock; J96.01 - Acute respiratory failure with hypoxia Category: Medical Code(s): A41.9 - Sepsis, unspecified organism (3) Respiratory failure with hypoxia: Status: Acute Qualifiers: Chronicity: acute Qualified Code(s): J96.01 - Acute respiratory failure with hypoxia Category: Medical Code(s): J96.91 - Respiratory failure, unspecified with hypoxia (4) Hypocalcemia: Status: Acute Category: Medical Code(s): E83.51 - Hypocalcemia (5) Diabetes mellitus: Status: Chronic Qualifiers: Diabetes mellitus complication status: with hyperglycemia Diabetes mellitus usp insulin use: with terminal gauger supervisor use Diabetes mellitus type: type 2 Qualified Code(s): E11.65 - Type 2 diabetes mellitus with hyperglycemia; Z79.4 - watermaster (current) use of insulin Category: Medical Code(s):
[2021-11-20 14:31] LABS: Histoplasma Gal'mannan Ag Ur <0.5 (<0.5 ng/mL)
--- NOTE | 2021-11-20 14:52 | PC.NURSE ---
rounded on patient. she is sitting up to chair visiting with family. no concerns or questions noted. no needs voiced.
--- NOTE | 2021-11-20 18:24 | PC.NURSE ---
Patient has been up to chair for most of shift, has been weaned to 2LNC and has tolerated well, lung sounds reveal exp rhonchi in bl bases, c/o headache, treated with tylenol per emar with good results, afebrile, ambulated in hallway with PT twice, no ss/ of distress noted, vss, bed in lowest position, call light in reach.
[2021-11-21] VITALS: BP 143/68; PULSE 89; RESP 20; TEMP 37.1; O2SAT 92
[2021-11-21 04:00] VITALS: BP 155/78; PULSE 87; RESP 20; TEMP 37; O2SAT 93
[2021-11-21 05:00] VITALS: BMI 25.9
--- NOTE | 2021-11-21 05:07 | PC.NURSE ---
pt has remained on 2L NC t/o shift, O2 sats 92-94%, no complaints of SOA, has complained of nausea one time this shift and was treated per MAR, ambulating to independently
[2021-11-21 06:10] VITALS: PULSE 86; PULSE 93; O2SAT 94
[2021-11-21 08:00] VITALS: BP 124/64; PULSE 95; RESP 18; TEMP 37.2; O2SAT 91; O2SAT 95
--- NOTE | 2021-11-21 08:50 | EXP.DC.SUM ---
General Admission date:: 11/16/21 Discharge date: 11/21/21 HPI HPI HPI: Ms. Tellez is a 66-year-old pleasant female admitted to the hospital over the weekend with progressively worsening respiratory distress that initially started as a flulike symptoms followed by worsening shortness and febrile episodes along with cough and only minimal productive phlegm. No significant prior respiratory complaints. No known sick contacts. Exam Data for Last 24 hours Vital signs and Labs for Last 24 Hours: Temp Pulse Resp BP Pulse Ox FiO2 98.9 F 95 H 18 124/64 95 45 11/21/21 08:00 11/21/21 08:00 11/21/21 08:00 11/21/21 08:00 11/21/21 08:00 11/19/21 09:20 Laboratory Results - last 24 hr 11/16/21 10:40: U Histopl Galactoman Ag <0.5 11/20/21 07:41: C-Reactive Protein 108.1 H 11/20/21 07:41: WBC 12.8 H D, RBC 3.72 L, Hgb 10.7 L, Hct 31.3 L, MCV 83.9, MCH 28.8, MCHC 34.3, RDW 13.4, Plt Count 339, MPV 7.6, Neut % (Auto) 73.5, Lymph % (Auto) 17.3, [place] % (Auto) 8.3, Eos % (Auto) 0.5, Baso % (Auto) 0.3, Neut # (Auto) 9.4 H, Lymph # (Auto) 2.2, [place] # (Auto) 1.1 H, Eos # (Auto) 0.1, Baso # (Auto) 0.0 11/20/21 07:41: BUN 20 H D, Creatinine 0.70 D, Estimated Creat Clear 58, Estimated GFR 84, Est GFR ( Amer) 102 D, Magnesium 2.1 I & O for Last 24 hours: Intake & Output 11/18/21 11/19/21 11/20/21 11/21/21 11:59 11:59 11:59 11:59 Intake Total 1300 / 1300 1504 / 1504 1560 / 1560 1400 / 1400 Output Total 1950 / 1950 1200 / 1200 0 / 800 3600 / 3600 Balance -650 / -650 304 / 304 1560 / 760 -2200 / -2200 Weight 138 lb 5.794 oz 143 lb 9 oz 137 lb 7 oz Microbiology Reports for the Last 24 Hours: Microbiology 11/17/21 08:30 Sputum - Expectorated Sputum Gram Stain - Final 11/17/21 08:30 Sputum - Expectorated Sputum Sputum Culture - Final Normal Respiratory Cristi 11/16/21 14:05 Nose - Nose MRSA Culture - Final Negative Constitutional Constitutional: no acute distress *Routine HEENT Exam Head: Present normocephalic Eye: Present EOMI and PERRL ENT: Present mucous membranes moist *Routine Neck Exam Neck: Present supple; Absent lymphadenopathy *Routine Respiratory Exam Respiratory: Present rhonchi Comments: Bilateral rhonchi but much improved air movement over previous exams *Routine Cardiovascular Exam Cardiovascular: Present RRR *Routine Abdominal Exam Abdominal: Present soft and normoactive bowel sounds; Absent tenderness *Routine Rectal Exam Rectal:: deferred *Routine Genitalia Exam Genitalia:: deferred *Routine Extremities Exam Extremities: Absent cyanosis, clubbing or edema *Routine Skin Exam Skin: Present warm; Absent rash *Routine Neurological Exam Neurological: Present alert and oriented X3 Hospital Course Hospital Course Hospital Course: Patient was admitted from the ER, placed on vancomycin, ceftriaxone and azithromycin because of the multilobar appearance and possibility of staphylococcal disease given the appearance of the infiltrates. Repetitive COVID and flu testing were negative, PCR testing for 23 panel test was negative also. Blood cultures were negative. Sputum cultures grew gram-positive chains and pairs but were deemed normal cristi per lab. Over the first 24 hours patient became somewhat more sick with increasing oxygen requirements and was transitioned over to Vapotherm. Given the high likelihood of streptococcal pneumonia coverage was broadened to cefepime which she tolerated well. The patient began to stepwise improve and oxygen requirements diminished and she was able to be transitioned to nasal cannula and then this morning spent most of the morning on room air and is comfortable. Lung exam improved, she is able to do all of her ADL activities and is eating well this morning. Glucose was high during her hospitalization but this was controlled with sliding scale and her regular insulin treatments. This morning she
[2021-11-21 09:03] VITALS: O2SAT 86
--- NOTE | 2021-11-21 09:17 | PC.NURSE ---
SRNA NOTE: went into room room and asked patient if he wanted to get cleaned up. Patient stated I showered yesterday and shaved. I am okay for the day.
--- NOTE | 2021-11-21 09:22 | PC.NURSE ---
SRNA NOTE: Went into room asking if the pt wanted to get cleaned up. Pt. stated I would really like to shower at home when i get discharged.
--- NOTE | 2021-11-21 09:46 | EXP.PULM.PN ---
Subjective *Date: 12/19/21 *Time: 13:08 Interval history: No acute respiratory events overnight. Continued improvement in respiratory symptoms. Weaned to room air this morning. Denies any worsening cough or productive phlegm. Minimal symptoms of dyspnea with exertion Pulmonology Exam Inpatient Vital signs and Labs for Last 24 Hours: Temp Pulse Resp BP Pulse Ox FiO2 98.9 F 95 H 18 124/64 86 L 45 11/21/21 08:00 11/21/21 08:00 11/21/21 08:00 11/21/21 08:00 11/21/21 09:03 11/19/21 09:20 Laboratory Results - last 24 hr 11/16/21 10:40: U Histopl Galactoman Ag <0.5 11/20/21 07:41: WBC 12.8 H D, RBC 3.72 L, Hgb 10.7 L, Hct 31.3 L, MCV 83.9, MCH 28.8, MCHC 34.3, RDW 13.4, Plt Count 339, MPV 7.6, Neut % (Auto) 73.5, Lymph % (Auto) 17.3, Clinch % (Auto) 8.3, Eos % (Auto) 0.5, Baso % (Auto) 0.3, Neut # (Auto) 9.4 H, Lymph # (Auto) 2.2, Clinch # (Auto) 1.1 H, Eos # (Auto) 0.1, Baso # (Auto) 0.0 I & O for Labs for Last 24 Hours: Intake & Output 11/18/21 11/19/21 11/20/21 11/21/21 23:59 23:59 23:59 23:59 Intake Total 1164 / 1164 1420 / 1680 940 / 940 940 / 940 Output Total 1350 / 1650 600 / 600 2100 / 2100 1500 / 1500 Balance -186 / -486 820 / 1080 -1160 / -1160 -560 / -560 Weight 138 lb 5.794 oz 143 lb 9 oz 137 lb 7 oz Microbiology Reports for the Last 24 Hours: Microbiology 11/17/21 08:30 Sputum - Expectorated Sputum Gram Stain - Final 11/17/21 08:30 Sputum - Expectorated Sputum Sputum Culture - Final Normal Respiratory Madonna 11/16/21 14:05 Nose - Nose MRSA Culture - Final Negative Head: normocephalic and atraumatic ENT: normal exam and normal oropharynx Neck: normal inspection and trachea midline Respiratory: respiratory distress, rhonchi, crackles, normal respiratory effort and able to speak in complete sentences Cardiac: S1/S2 and Tachycardia GI: soft and normal bowel sounds Rectal (female): deferred (female): deferred Skin: intact, warm and normal turgor Neuro: Numbness, Weakness, alert, awake and oriented x 3 Comment:: No Edema, No clubbing and No Cyanosis Psychiatric: normal affect Assessment and Plan *Assessment and plan (1) Pneumonia: Status: Acute Qualifiers: Laterality: bilateral Lung location: unspecified part of lung Pneumonia type: due to unspecified organism Qualified Code(s): J18.9 - Pneumonia, unspecified organism Category: Medical Code(s): J18.9 - Pneumonia, unspecified organism (2) Respiratory failure with hypoxia: Status: Resolved Qualifiers: Chronicity: acute Qualified Code(s): J96.01 - Acute respiratory failure with hypoxia Category: Medical Code(s): J96.91 - Respiratory failure, unspecified with hypoxia Assessment and plan all Dx Plan of Treatment: #Acute hypoxic respiratory failure: #Community-acquired pneumonia: 66-year-old female.? No prior respiratory complaints.? Present with 1 week course of worsening flulike symptoms along with cough and productive phlegm and respiratory distress. CT chest on admission reviewed, no evidence of pulmonary embolism, showed dense right lower lobe and left lower lobe consolidation noted along with multiple patchy infiltrates in the rest of the lung parenchyma and also in subpleural location concerning for hematogenous spread. No prior respiratory complaints.? Never used any inhalers.? Personal history of allergies.? No known sick contact exposure.? No other environmental exposures recently.? Received PCV 20 vaccine 5 days prior to admission. Echocardiogram no evidence of systolic or diastolic dysfunction.? No evidence of vegetations. Sputum KANCHAN no fungal elements seen. Maxillary respiratory status continued to improve, eventually weaned from high flow nasal cannula 40 L 80% to nasal cannula and eventually to room air this morning. Saturations maintained at 90 to 94% on room air at rest. She will be discharged with oxy
--- NOTE | 2021-11-21 09:49 | CARE MANAGER ---
Patient will require nebulizer and home oxygen upon discharge. Information sent to [facility]. CHAR Wheeler
--- NOTE | 2021-11-21 10:11 | PC.NURSE ---
awaiting delivery of portably O2 for discharge.
--- NOTE | 2021-11-21 11:08 | PC.NURSE ---
Rounded on pt, RN in room going over discharge. No needs voiced.
--- NOTE | 2021-11-22 13:18 | CARE MANAGER ---
Spoke with patient for post-discharge phone interview, she states that she has he medications and follow-up appointments and has no issues at this time.
[2021-11-26 13:15] LABS: Legionella pneumophila Urinary Positive (Negative)
== END 2021-11-21 11:31 | disposition home or self-care (01) | DRG 871 ==
LOC: ER 14:15 → 2ND 14:48
PROVIDERS: Internal Medicine Adolescent Medicine; Internal Medicine Pulmonary Disease; Admitting Provider Internal Medicine Adolescent Medicine; Emergency Provider Emergency Medicine; PCP Nurse Practitioner Family; Visit Provider Internal Medicine Adolescent Medicine
DX: A41.9 Sepsis, unspecified organism (principal); J15.4 Pneumonia due to other streptococci; J96.01 Acute respiratory failure with hypoxia; E11.9 Type 2 diabetes mellitus without complications; E83.51 Hypocalcemia; E78.5 Hyperlipidemia, unspecified; Z79.4 Long term (current) use of insulin
CPT/HCPCS: 36415; 71045; 71046; 71275; 74177; 80048; 80053; 80202; 81001; 82803; 82962; 83036; 83605; 83615; 83735; 83880; 84145; 85007; 85025; 85651; 86140; 87040; 87070; 87081; 87205; 87220; 87278; 87385; 87581; 87632; 87798; 93306; 94640; 94667; 94760; 94761; 97116; 97161; 99285; C9803; G0238; J0456; J0696; J2405; J3370; Q9967; U0003; U0005

== ENCOUNTER → 2021-11-28 12:10 | Outpatient (CLI) | payer OTHER, MEDICARE, SELFPAY ==
[2021-11-28 13:13] LABS: Basophils # 0.2 K/mm3 (0-0.2); Eosinophils # 0.2 K/mm3 (0.0-0.4); Hematocrit 42.4 % (37.0-47.0); Hemoglobin 13.1 g/dL (12.2-16.2); Lymphocytes # 2.9 K/mm3 (0.7-4.5); Lymphocytes % 18.4 % (10-50); Mean Corpuscular HGB Conc 30.9 g/dL (31.8-35.4); Mean Corpuscular Hemoglobin 28.2 pg (27.0-31.2); Mean Corpuscular Volume 91.5 fl (81-99); Mean Platelet Volume 8.1 fl (7.4-10.4); Monocytes # 1.3 K/mm3 (0.1-1.0); Monocytes % 8.3 % (1.7-9.3); Neutrophils # 11.1 K/mm3 (1.8-7.8); Neutrophils % 71.3 % (37.0-80.0); Platelet Count 674 K/mm3 (142-424); Red Blood Count 4.63 M/mm3 (4.20-5.40); Red Cell Distribution Width 14.5 % (11.5-17.5); White Blood Count 15.6 K/mm3 (4.8-10.8)
[2021-11-28 13:18] LABS: MANUAL DIFFERENTIAL MANUAL DIFFERENTIAL (MANUAL DIFF)
[2021-11-28 13:26] LABS: Anion Gap 15.2 mEq/L (5-15); Blood Urea Nitrogen 19 mg/dl (7-17); Calcium 9.6 mg/dl (8.4-10.2); Carbon Dioxide 27 mmol/L (22.0-30.0); Chloride 100 mmol/L (98-107); Estimated Glomerular Filt Rate 63 ml/min (>60); GFR (African American) 76 ML/MIN (>60); Glucose 98 mg/dl (74-100); Potassium 5.2 mmoL/L (3.5-5.1); Sodium 137 mmol/L (136-145)
[2021-11-28 18:54] LABS: Anisocytosis 1+; Eosinophils % 1 % (0-3); Hypochromasia 2+; Lymphocytes % 23 % (10-50); Monocytes % 5 % (2-9); Neutrophils % 71 % (42-76); Platelet Estimate Moderate Increase; Total Cells Counted 100
== END ==
PROVIDERS: PCP Nurse Practitioner Family; Visit Provider Nurse Practitioner Family
DX: A48.1 Legionnaires' disease (principal)
CPT/HCPCS: 36415; 80048; 85007; 85025

== ENCOUNTER → 2021-12-09 15:55 | Outpatient (CLI) | payer OTHER, MEDICARE, SELFPAY ==
[2021-12-09 18:18] LABS: Basophils # 0.1 K/mm3 (0-0.2); Eosinophils # 0.2 K/mm3 (0.0-0.4); Eosinophils % 2.3 % (0.1-12.0); Hematocrit 38.9 % (37.0-47.0); Hemoglobin 12.3 g/dL (12.2-16.2); Lymphocytes # 3.1 K/mm3 (0.7-4.5); Lymphocytes % 33.3 % (10-50); Mean Corpuscular HGB Conc 31.6 g/dL (31.8-35.4); Mean Corpuscular Hemoglobin 29.1 pg (27.0-31.2); Mean Corpuscular Volume 92.3 fl (81-99); Monocytes # 0.8 K/mm3 (0.1-1.0); Monocytes % 8.6 % (1.7-9.3); Neutrophils # 5.1 K/mm3 (1.8-7.8); Neutrophils % 54.8 % (37.0-80.0); Platelet Count 257 K/mm3 (142-424); Red Blood Count 4.22 M/mm3 (4.20-5.40); Red Cell Distribution Width 14.6 % (11.5-17.5); White Blood Count 9.3 K/mm3 (4.8-10.8)
[2021-12-09 20:44] LABS: Blood Urea Nitrogen 16 mg/dl (7-17); Calcium 8.5 mg/dl (8.4-10.2); Carbon Dioxide 28 mmol/L (22.0-30.0); Chloride 99 mmol/L (98-107); Estimated Glomerular Filt Rate 63 ml/min (>60); GFR (African American) 76 ML/MIN (>60); Glucose 209 mg/dl (74-100); Sodium 135 mmol/L (136-145)
== END ==
PROVIDERS: PCP Nurse Practitioner Family; Visit Provider Internal Medicine Adolescent Medicine
DX: E87.5 Hyperkalemia (principal); D72.829 Elevated white blood cell count, unspecified
CPT/HCPCS: 36415; 80048; 85025

== ENCOUNTER → 2021-12-25 11:22 | Outpatient (CLI) | payer OTHER, SELFPAY ==
--- NOTE | 2021-12-25 14:58 | CT_ITS ---
FINAL REPORT TECHNIQUE: Axial CT images were performed through the chest without contrast. Coronal reformatted images were submitted. This study was performed with techniques to keep radiation doses as low as reasonably achievable (ALARA). Individualized dose reduction techniques using automated exposure control or adjustment of mA and/or kV according to the patient's size were employed. CLINICAL HISTORY: Lung nodules COMPARISON: November 16, 2021 FINDINGS: CT CHEST W/O CONTRAST There is no axillary adenopathy. There is no hilar or mediastinal adenopathy. The heart size is normal. There is no pericardial or pleural effusion. Limited images of the upper abdomen demonstrate tiny nonobstructing right renal stones. There is a small hiatal hernia. There has been resolution of patchy infiltrate since the prior exam with no underlying mass identified. No suspicious infiltrate or nodule identified. IMPRESSION: Resolved multifocal pneumonia since the prior exam. Reviewed, Interpreted and Dictated by Cedric Garibay MD Transcribed by Laura Garnett Authenticated and [facility]
== END ==
PROVIDERS: PCP Nurse Practitioner Family; Visit Provider Internal Medicine Pulmonary Disease
DX: J96.91 Respiratory failure, unspecified with hypoxia (principal); R91.8 Other nonspecific abnormal finding of lung field
CPT/HCPCS: 71250; 94762

== ENCOUNTER 2022-04-22 07:18 | Day surgery (SDC) | payer OTHER, SELFPAY ==
[2022-04-22 09:51] VITALS: BP 156/102; PULSE 85; RESP 18; TEMP 36.3; O2SAT 99; BMI 26.0
[2022-04-22 10:10] LABS: POC Glucose,Bedside 165 (70-110)
[2022-04-22 10:20] VITALS: BP 156/102; PULSE 85; RESP 18; TEMP 36.3; O2SAT 99
== END 2022-04-22 10:20 | disposition home or self-care (01) ==
LOC: OUTP 07:21
PROVIDERS: PCP Nurse Practitioner Family; Visit Provider Ophthalmology
PROC: (CPT 66821; principal; 2022-04-22 09:30)
DX: H26.40 Unspecified secondary cataract (principal); E11.9 Type 2 diabetes mellitus without complications
CPT/HCPCS: 66821; 82962

== ENCOUNTER 2023-07-22 17:04 | Emergency (ER) | payer OTHER, BC, SELFPAY ==
[2023-07-22 18:05] VITALS: BP 175/69; PULSE 94; RESP 18; TEMP 37.1; O2SAT 97; BMI 26.0
--- NOTE | 2023-07-22 18:10 | ED_ITS ---
Discharge Plan Disposition Patient Disposition: Home, Self-Care Condition: Good Prescriptions Prescriptions: New Paxlovid 300 mg (150 mg x 2)-100 mg tablets,dose pack See Rx Instructions .ROUTE .COMPLEX Qty: 30 0RF Rx Instructions: take TWO 150 mg tablets of nirmatrelvir with ONE 100 mg tablet of ritonavir twice daily for 5 days No Action cyanocobalamin (vitamin B-12) 1,000 mcg/mL solution 1,000 mcg IM MONTHLY Qty: 1 Patient Comments: INJECT 1000 MCG (1 ML) INTRAMUSCULARLY ONCE A MONTH insulin aspart (niacinamide) 100 UNIT/ML insulin pen 10 unit SQ TID Rx Instructions: per sliding scale up to 12 units insulin glargine 100 UNIT/ML insulin pen 26 units SQ HS insulin glargine 100 UNIT/ML insulin pen 10 unit SQ AM lisinopril 2.5 MG tablet 2.5 mg PO DAILY rosuvastatin 20 MG tablet 20 mg PO HS Referrals Follow up/Referrals: Brittany Hensley APRN [Primary Care Provider] - See instructions Activity Restrictions/Add. Instructions Additional Instructions/Restrictions: Drink plenty of fluids. Take tylenol or ibuprofen for pain or fever. Take the medications as directed. Follow up with your regular doctor. GO TO THE ER FOR ANY WORSENING SYMPTOMS Clinical Impressions Clinical Impression: COVID-19 Instructions Patient Instructions: Coronavirus Disease 2019, Preventing the Spread of Coronavirus Discharge Instructions [place] ED Provider[place] Bal[place] [facility] [place] General Stated complaint: exp to covid- cough runny nose Time Seen by Provider: 07/22/23 18:10 History of Present Illness Provider Complaint: She tested positive for covid-19 earlier today. She has had fever, chills, body aches and chest congestion for the past 2 days. Related Data Home Medications Medication Instructions Recorded Confirmed cyanocobalamin (vitamin B-12) 1,000 mcg IM MONTHLY Supplement #1 07/26/18 05/05/23 1,000 mcg/mL injection solution mL insulin aspart 10 unit SQ TID daibetes 06/12/20 05/05/23 (niacinamide)(U-100) 100 unit/mL(3 mL) subcutaneous pen insulin glargine 100 unit/mL (3 10 unit SQ AM DM 11/16/21 05/05/23 mL) subcutaneous pen insulin glargine 100 unit/mL (3 26 units SQ HS dm 11/16/21 05/05/23 mL) subcutaneous pen lisinopril 2.5 mg tablet 2.5 mg PO DAILY BLOOD PRESSURE 11/17/21 05/05/23 rosuvastatin 20 mg tablet 20 mg PO HS Cholesterol 11/17/21 05/05/23 Previous Rx's Medication Instructions Recorded nirmatrelvir 300 mg (150 mg See Rx Instructions PO .COMPLEX 07/22/23 x2)-ritonavir 100 mg tablet,dose #30 tabs pack (Paxlovid) Allergies Allergy/AdvReac Type Severity Reaction Status Date / Time cefepime AdvReac Intermediate Flushing Verified 05/05/23 08:13 [facility] Disclaimer: The information contained in this section may have been updated after the patient was seen, as this information can be updated by other users. Medical History Community acquired pneumonia Diabetic foot Dyspnea on exertion Hammertoes of both feet Legionella pneumonia Multiple lung nodules on CT Onychomycosis Pneumonia Pre-ulcerative calluses Surgical History History of 2 sections History of cholecystectomy History of shoulder surgery Family History Father Black lung disease Social History Smoking Status: Never smoker second hand exposure: No alcohol intake: current alcohol intake frequency: holidays/special occasions only substance use type: denies use current occupational status: employed Travel in the last 8 weeks: Inside the [place] household members: spouse housing: house current occupation: [employer] current occupational exposures/hazards: No caffeine: Yes ROS Obtained: Yes All systems reviewed & no additional complaints except as documented Constitutional Constitutional: Reports chills and Reports fever(s) Eyes Eyes: Denies eye discharge ENT Ears, Nose, Mouth, and Throat: Reports as per HPI Cardiovascular Cardiovascular: Denies chest pain Respiratory Respiratory: Denies chest congestion and Reports cough Gastrointestinal Gastrointestingal: Reports nausea; Denies abdominal pain, constipation, cramping, diarrhea or vomiting Musculoskeletal Musculoskeletal: Denies arthralgias Integumentary/Breasts Skin/Breast: Denies rash Neurologic Neurologic: Denies paresthesias Physical Exam General General appearance: alert and in no apparent distress Head Head exam: atraumatic, normocephalic and normal inspection Eye Eye exam: Present normal appearance, PERRL and EOMI ENT ENT exam: Present normal exam, normal oropharynx, mucous membranes moist, TM's normal bilaterally and normal external ear exam Neck Neck exam: Present normal inspection, full ROM and trachea midline; Absent meningismus or lymphadenopathy Chest Chest inspection: Present normal inspection and symmetric chest wall rise; Absent tenderness Respiratory Respiratory exam: Present normal lung sounds bilaterally; Absent respiratory distress Cardiovascular Cardiovascular exam: Present regular rate and normal rhythm; Absent JVD Abdominal Exam Abdominal exam: Present soft and normal bowel sounds; Absent distention, tenderness or guarding Extremities Exam Extremities exam: Present normal inspection, full ROM and normal capillary refill; Absent calf tenderness Back Exam Back exam: Present normal inspection; Absent tenderness Neurological Exam Neurological exam: Present alert and oriented X3 Psychiatric Psychiatric exam: Present normal affect and normal mood Skin Skin exam: Present warm, dry, intact and normal color Lymphatic Lymphatic Findings: no adenopathy Medical Decision Making Medical Records Medical records reviewed: No I reviewed the patient's medical records. Miguel Inquiry Pt receiving controlled substance: No
[2023-07-22 18:31] VITALS: BP 175/69; PULSE 94; RESP 18; TEMP 37.1; O2SAT 97
== END 2023-07-22 18:30 | disposition home or self-care (01) ==
PROVIDERS: Emergency Provider Nurse Practitioner Family; PCP Nurse Practitioner Family
DX: U07.1 COVID-19 (principal); R50.9 Fever, unspecified; R05.9 Cough, unspecified; E11.9 Type 2 diabetes mellitus without complications; Z79.4 Long term (current) use of insulin
CPT/HCPCS: 99212; 99214; G0463

== ENCOUNTER 2023-09-16 07:04 | Outpatient (CLI) | payer OTHER, BC, SELFPAY ==
[2023-09-16 07:34] LABS: Basophils # 0.1 K/mm3 (0-0.2); Eosinophils # 0.2 K/mm3 (0.0-0.4); Hematocrit 39.5 % (37.0-47.0); Lymphocytes # 2.9 K/mm3 (0.7-4.5); Lymphocytes % 31.7 % (10-50); Mean Corpuscular HGB Conc 32.9 g/dL (31.8-35.4); Mean Corpuscular Hemoglobin 29.5 pg (27.0-31.2); Mean Corpuscular Volume 89.8 fl (81-99); Monocytes # 0.8 K/mm3 (0.1-1.0); Monocytes % 8.5 % (1.7-9.3); Neutrophils # 5.3 K/mm3 (1.8-7.8); Neutrophils % 56.8 % (37.0-80.0); Platelet Count 274 K/mm3 (142-424); Red Cell Distribution Width 14.5 % (11.5-17.5); White Blood Count 9.2 K/mm3 (4.8-10.8)
[2023-09-16 07:38] LABS: Creatinine,Urine Random 157 mg/dL (Not Estab.)
[2023-09-16 07:44] LABS: Microalbumin < 6.000 mg/L (0-16.7)
[2023-09-16 08:51] LABS: Chloride 106 mmol/L (98-107); Potassium 4.7 mmoL/L (3.5-5.1); Sodium 137 mmol/L (136-145)
[2023-09-16 08:54] LABS: Alanine Aminotransferase 28 U/L (12-78); Albumin Level 3.9 g/dl (3.5-5.0); Albumin/Globulin Ratio 1.4 (1.1-1.8); Alkaline Phosphatase 70 U/L (38-126); Anion Gap 10.7 mEq/L (5-15); Aspartate Amino Transferase 37 U/L (14-36); Bilirubin,Total 0.5 mg/dl (0.2-1.3); Blood Urea Nitrogen 20 mg/dl (7-17); Calcium 9.1 mg/dl (8.4-10.2); Carbon Dioxide 25 mmol/L (22.0-30.0); Cholesterol 205 mg/dl (140-200); Estimated Glomerular Filt Rate 62 ml/min (>60); GFR (African American) 76 ML/MIN (>60); Globulin 2.8 g/dL (1.3-3.2); Glucose 156 mg/dl (74-100); Total Protein,Serum 6.7 g/dl (6.3-8.2); Triglycerides 160 mg/dl (30-150); VLDL Cholesterol 32 mg/dL (0-40)
[2023-09-16 08:55] LABS: Chol/HDL Ratio 3.6 (1-3.5); HDL Cholesterol 57 mg/dl (40-60)
[2023-09-16 09:33] LABS: Hemoglobin A1C 7.2 % (4.0-6.0)
[2023-09-16 12:51] LABS: Vitamin B12 278 pg/mL (239-931)
== END 2023-09-16 23:59 | disposition home or self-care (01) ==
LOC: LAB 07:05
PROVIDERS: PCP Nurse Practitioner Family; Visit Provider Nurse Practitioner Family
DX: Z79.4 Long term (current) use of insulin (principal); E10.29 Type 1 diabetes mellitus with other diabetic kidney complication; E53.8 Deficiency of other specified B group vitamins; Z68.26 Body mass index [BMI] 26.0-26.9, adult
CPT/HCPCS: 36415; 80053; 80061; 82043; 82570; 82607; 83036; 85025

== ENCOUNTER 2023-11-19 11:06 | Emergency (ER) | payer OTHER, BC, SELFPAY ==
[2023-11-19 11:21] VITALS: BP 157/77; PULSE 84; RESP 18; TEMP 37; O2SAT 98; BMI 26.2
--- NOTE | 2023-11-19 11:29 | ED_ITS ---
Discharge Plan Disposition Patient Disposition: Home, Self-Care Condition: Good Prescriptions Prescriptions: New amoxicillin 500 mg capsule 500 mg PO BID 5 Days Qty: 10 0RF No Action cyanocobalamin (vitamin B-12) 1,000 mcg/mL solution 1,000 mcg IM MONTHLY Qty: 1 Patient Comments: INJECT 1000 MCG (1 ML) INTRAMUSCULARLY ONCE A MONTH insulin aspart (niacinamide) 100 UNIT/ML insulin pen 10 unit SQ TID Rx Instructions: per sliding scale up to 12 units insulin glargine 100 UNIT/ML insulin pen 26 units SQ HS insulin glargine 100 UNIT/ML insulin pen 10 unit SQ AM lisinopril 2.5 MG tablet 2.5 mg PO DAILY rosuvastatin 20 MG tablet 20 mg PO HS Referrals Follow up/Referrals: Brittany Hensley APRN [Primary Care Provider] - See instructions Activity Restrictions/Add. Instructions Additional Instructions/Restrictions: Keep wound area clean and dry Steri strips with wear off do not pull off If you still have some bleeding from the area follow up with your Family Doctor Return if needed Straight to ER if any life threatening symptoms Clinical Impressions Clinical Impression: Skin tear Instructions Patient Instructions: DI for Laceration Repair-Skin Closure Strips Print Language Print Language: Liberian Discharge ED Provider: Lesa Hayes [facility] [place] HPI General Stated complaint: AO 11/19/2023 bruising, swelling, bleeding R index Mode of Arrival: Ambulatory Source of Information: Patient Limitations: No Limitations Time Seen by Provider: 11/19/23 11:29 Description of Symptoms (Recalled from Triage Doc. by RN): finger pain HEENT Symptoms (Recalled from RN notes): No Resp Symptoms (Recalled from RN notes): No Skin Symptoms (Recalled from RN notes): Yes MS Symptoms (Recalled from RN notes): No Functional Status (Recalled from RN notes): na History of Present Illness Provider Complaint: Patient states that door shut on her right index finger yesterday causing skin tear and some of the skin is missing States she is a diabetic and she was worried about infection and the fact that it continues to bleed on and off so she came in to get it checked Related Data Home Medications ?Medication ?Instructions ?Recorded ?Confirmed cyanocobalamin (vitamin B-12) 1,000 mcg IM MONTHLY Supplement #1 07/26/18 11/03/23 1,000 mcg/mL injection solution mL insulin aspart 10 unit SQ TID galenbetes 06/12/20 11/03/23 (niacinamide)(U-100) 100 unit/mL(3 mL) subcutaneous pen insulin glargine 100 unit/mL (3 10 unit SQ AM DM 11/16/21 11/03/23 mL) subcutaneous pen insulin glargine 100 unit/mL (3 26 units SQ HS dm 11/16/21 11/03/23 mL) subcutaneous pen lisinopril 2.5 mg tablet 2.5 mg PO DAILY BLOOD PRESSURE 11/17/21 11/03/23 rosuvastatin 20 mg tablet 20 mg PO HS Cholesterol 11/17/21 11/03/23 Previous Rx's ?Medication ?Instructions ?Recorded amoxicillin 500 mg capsule 500 mg PO BID 5 days #10 caps 11/19/23 Allergies Allergy/AdvReac Type Severity Reaction Status Date / Time cefepime AdvReac Intermediate Flushing Verified 11/03/23 08:26 Worker's Comp Is this a Worker's Comp case?: No Is this an [facility] Worker's Comp?: No Is this a [facility] Worker's Comp?: No [facility] Disclaimer: The information contained in this section may have been updated after the patient was seen, as this information can be updated by other users. Medical History Dyspnea on exertion Legionella pneumonia Community acquired pneumonia Multiple lung nodules on CT Pneumonia Diabetic foot Hammertoes of both feet Pre-ulcerative calluses Onychomycosis Surgical History History of cholecystectomy History of 2 sections History of shoulder surgery Family History Father Black lung disease Social History Smoking Status: Never smoker second hand exposure: No alcohol intake: current alcohol intake frequency: holidays/special occasions only substance use type: denies use current occupational status: employed Travel in the last 8 weeks: [place] the [place] household members: spouse housing: house current occupation: [employer] current occupational exposures/hazards: No caffeine: Yes ROS Obtained: Yes All systems reviewed & no additional complaints except as documented and Yes Systems reviewed as appropriate & no additional complaints except as documented Constitutional Constitutional: Reports system reviewed and no additional complaints, except as documented and Reports as per HPI ENT Ears, Nose, Mouth, and Throat: Reports system reviewed and no additional complaints, except as documented and Reports as per HPI Cardiovascular Cardiovascular: Reports system reviewed and no additional complaints, except as documented and Reports as per HPI Respiratory Respiratory: Reports system reviewed and no additional complaints, except as documented and Reports as per HPI Gastrointestinal Gastrointestingal: Reports system reviewed and no additional complaints, except as documented and as per HPI Integumentary/Breasts Skin/Breast: Reports system reviewed and no additional complaints, except as documented and Reports as per HPI Comments: skin tear on right index finger that has continued to ooze with a small piece of skin missing Physical Exam General General appearance: alert and in no apparent distress ENT ENT exam: Present mucous membranes moist Respiratory Respiratory exam: Present normal lung sounds bilaterally; Absent respiratory distress or wheezes Cardiovascular Cardiovascular exam: Present regular rate, normal rhythm and normal heart sounds Expanded Upper Extremity Exam Right: Hand L/R back image: 2 1. small skin tear noted with small amount of bleeding noted, mildly red and small amount of skin missing able to move and bend finger easily Neurological Exam Neurological exam: Present alert and oriented X3 Medical Decision Making Miguel Inquiry Pt receiving controlled substance: No Miguel was queried for this patient: No Vital Signs: 11/19/23 11:21 Temperature 98.6 F Temperature Source Oral Pulse Rate [Left] 84 Respiratory Rate 18 Blood Pressure [Left Arm] 157/77 H Blood Pressure Mean [Left Arm] 103 02 Sat by Pulse Oximetry 98 Oxygen Delivery Method Room Air Medical Decision Narrative: bleeding easily controled, small steri strip placed to pull skin edges together and nonstick placed bleeding control Medication discussed with pharmacy Patient states she had flushing from Cefepime in the hosptial but no rash and had taken amoxicllin in the past without reaction
[2023-11-19 12:03] VITALS: BP 157/77; PULSE 84; RESP 18; TEMP 37; O2SAT 98
== END 2023-11-19 12:11 | disposition home or self-care (01) ==
PROVIDERS: Emergency Provider Nurse Practitioner; PCP Nurse Practitioner Family
DX: S61.200A Unspecified open wound of right index finger without damage to nail, initial encounter (principal); E11.9 Type 2 diabetes mellitus without complications; W23.0XXA Caught, crushed, jammed, or pinched between moving objects, initial encounter; Z79.4 Long term (current) use of insulin
CPT/HCPCS: 99212; 99214; G0463

== ENCOUNTER 2024-05-16 17:27 | Outpatient (CLI) | payer OTHER, BC, SELFPAY ==
--- NOTE | 2024-05-16 17:39 | CT_ITS ---
PROCEDURE INFORMATION: Exam: CT Right Lower Extremity, Ankle Exam date and time: 05/16/2024 5:49 PM Age: 69 years old Clinical indication: Pain; Ankle; Right; Additional info: Closed fracture right ankle TECHNIQUE: Imaging protocol: CT of the right lower extremity without contrast was performed. Exam focused on the ankle. Radiation optimization: All CT scans at this facility use at least one of these dose optimization techniques: automated exposure control; mA and/or kV adjustment per patient size (includes targeted exams where dose is matched to clinical indication); or iterative reconstruction. COMPARISON: No relevant prior studies available. FINDINGS: Bones/joints: Acute transverse oblique fracture of the distal fibular metadiaphysis 1.5 cm above the mortise joint, Taylor C, with 2 mm posterolateral displacement of the distal fragment. slight 2.5 mm lateral subluxation of the talar dome relative to the tibial plafond with slight widening of the medial gutter. 4 mm acute appearing avulsion fragment at the tip of the medial malleolus concerning for deltoid ligament avulsion. There is a 10 mm zone of suspected fibro-osseous talocalcaneal coalition medially. 4 x 2 mm calcification at the lateral talar process with adjacent well corticated margin favoring chronic calcification, probably enthesopathic or remote minor avulsion. Enthesopathy at the 5th metatarsal base. Soft tissues: Soft tissue swelling around the ankle. No hematoma. Vasculature: Moderate calcific atherosclerosis. IMPRESSION: 1. Fractures of the distal fibula and medial malleolus detailed above, with 2.5 mm lateral talar subluxation. 2. Soft tissue swelling. 3. 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
[2024-05-16 18:06] LABS: Basophils # 0.1 K/mm3 (0-0.2); Basophils % 0.7 % (0.1-2.0); Eosinophils # 0.2 K/mm3 (0.0-0.4); Eosinophils % 1.6 % (0.1-12.0); Hematocrit 37.7 % (37.0-47.0); Hemoglobin 12.6 g/dL (12.2-16.2); Lymphocytes # 3.3 K/mm3 (0.7-4.5); Lymphocytes % 30.1 % (10-50); Mean Corpuscular HGB Conc 33.4 g/dL (31.8-35.4); Mean Corpuscular Hemoglobin 28.5 pg (27.0-31.2); Mean Corpuscular Volume 85.3 fl (81-99); Mean Platelet Volume 9.6 fl (7.4-10.4); Neutrophils # 6.4 K/mm3 (1.8-7.8); Neutrophils % 58.3 % (37.0-80.0); Platelet Count 325 K/mm3 (142-424); Red Blood Count 4.42 M/mm3 (4.20-5.40); Red Cell Distribution Width 14.6 % (11.5-17.5); White Blood Count 10.9 K/mm3 (4.8-10.8)
[2024-05-16 18:26] LABS: Chloride 104 mmol/L (98-107); Potassium 4.1 mmoL/L (3.5-5.1); Sodium 138 mmol/L (136-145)
[2024-05-16 18:29] LABS: Blood Urea Nitrogen 16 mg/dl (7-17); Estimated Glomerular Filt Rate 71 ml/min (>60); GFR (African American) 86 ML/MIN (>60)
[2024-05-16 18:30] LABS: Anion Gap 14.1 mEq/L (5-15); Calcium 8.8 mg/dl (8.4-10.2); Carbon Dioxide 24 mmol/L (22.0-30.0); Glucose 165 mg/dl (74-100)
[2024-05-16 19:10] LABS: Hemoglobin A1C 7.2 % (4.0-6.0)
== END 2024-05-16 23:59 | disposition home or self-care (01) ==
PROVIDERS: PCP Nurse Practitioner Family; Visit Provider Orthopaedic Surgery
DX: S82.891A Other fracture of right lower leg, initial encounter for closed fracture (principal)
CPT/HCPCS: 36415; 73700; 80048; 83036; 85025

== ENCOUNTER 2024-07-26 15:00 | Outpatient (RCR) | payer OTHER, BC, SELFPAY | END 2024-07-26 23:59 | disposition home or self-care (01) | LOC: PT 15:00 | PROVIDERS: Visit Provider Orthopaedic Surgery | DX: Z98.890 Other specified postprocedural states (principal); Z87.81 Personal history of (healed) traumatic fracture | CPT/HCPCS: 97110; 97140; 97163 ==

== ENCOUNTER 2024-08-25 11:00 | Outpatient (RCR) | payer OTHER, BC, SELFPAY | END 2024-08-25 23:59 | disposition home or self-care (01) | LOC: PT 11:00 | PROVIDERS: Visit Provider Orthopaedic Surgery | DX: Z47.89 Encounter for other orthopedic aftercare (principal); Z98.890 Other specified postprocedural states; Z87.81 Personal history of (healed) traumatic fracture | CPT/HCPCS: 97110; 97112; 97140; 97164; 97530 ==

== ENCOUNTER 2024-09-09 15:00 | Outpatient (RCR) | payer OTHER, BC, SELFPAY | END 2024-09-09 23:59 | disposition home or self-care (01) | LOC: PT 15:00 | PROVIDERS: Visit Provider Orthopaedic Surgery | DX: Z47.89 Encounter for other orthopedic aftercare (principal); Z98.890 Other specified postprocedural states; Z87.81 Personal history of (healed) traumatic fracture | CPT/HCPCS: 97110; 97112; 97140 ==

== ENCOUNTER 2025-02-15 09:36 | Outpatient (CLI) | payer BC, SELFPAY ==
[2025-02-15 11:09] LABS: Alanine Aminotransferase 22 U/L (12-78); Albumin Level 4.4 g/dl (3.5-5.0); Albumin/Globulin Ratio 1.8 (1.1-1.8); Alkaline Phosphatase 74 U/L (38-126); Anion Gap 9.0 mEq/L (5-15); Aspartate Amino Transferase 31 U/L (14-36); Bilirubin,Total 0.4 mg/dl (0.2-1.3); Blood Urea Nitrogen 18 mg/dl (7-17); Calcium 9.5 mg/dl (8.4-10.2); Carbon Dioxide 28 mmol/L (22.0-30.0); Chloride 101 mmol/L (98-107); Cholesterol 185 mg/dl (140-200); Creatinine,Serum 0.80 mg/dl (0.52-1.04); Estimated Glomerular Filt Rate 71 ml/min (>60); GFR (African American) 86 ML/MIN (>60); Globulin 2.5 g/dL (1.3-3.2); Glucose 161 mg/dl (74-100); HDL Cholesterol 71 mg/dl (40-60); Potassium 5.0 mmoL/L (3.5-5.1); Sodium 133 mmol/L (136-145); Total Protein,Serum 6.9 g/dl (6.3-8.2); Triglycerides 113 mg/dl (30-150)
[2025-02-15 11:58] LABS: Vitamin B12 272 pg/mL (239-931)
[2025-02-15 13:42] LABS: Hemoglobin A1C 7.4 % (4.0-6.0)
== END 2025-02-15 23:59 | disposition home or self-care (01) ==
LOC: LAB 09:38
PROVIDERS: PCP Nurse Practitioner Family; Visit Provider Student in an Organized Health Care Education/Training Program
DX: E11.65 Type 2 diabetes mellitus with hyperglycemia (principal); Z79.4 Long term (current) use of insulin
CPT/HCPCS: 36415; 80053; 80061; 82043; 82607; 83036